=== PATIENT | male | born 1950 | race Caucasian/White ===

== ENCOUNTER 2018-10-30 10:21 | Inpatient (IN) | payer MEDICARE, BC ==
[2018-10-30] MEDS ORDERED: Ondansetron 4 MG/2 ML SDV IVPUSH ONE (11:13)
[2018-10-30] MEDS ORDERED: Dextrose 5%-Lactated Ringers 1,000 ML IV SCH (11:15)
--- NOTE | 2018-10-30 11:18 | EDM.PDOC ---
ED HPI GENERAL MEDICAL PROBLEM - General Chief Complaint: Abdominal Pain Stated Complaint: ABDOMINAL PAIN, DIAHREA X4 DAYS Time Seen by Provider: 10/30/18 11:12 Source of Information: Reports: Patient History Limitations: Reports: No Limitations - History of Present Illness INITIAL COMMENTS - FREE TEXT/NARRATIVE: 68-year-old male presents to the ED with diffuse inferior umbilical abdominal pain 4 days. Pain is strongly colicky and interfering with his sleep. Unable to eat. States he's been having small squirts of diarrhea mostly yellowish in color sometimes 10 or 12 times per day for the last 4 days. Pain waxes and wanes suggesting a very strong colicky component to the pain. He's had intermittent chills but no defined fever. He has had no previous abdominal surgery. He's had an umbilical hernia for a lengthy period of time which is never given him a problem. Over the walk-in clinic and identified to have the above history. No labs were done and he was sent to the ED for further evaluation. Onset: Sudden Onset Date: 10/27/18 (Developed periumbilical infraumbilical abdominal pain with intermittent diarrhea small quantity stools for 4 days) Duration: Day(s):, Waxing/Waning (4) Location: Reports: Abdomen (Periumbilical infraumbilical abdominal pain no with no radiation to the back) Quality: Reports: Ache, Other Severity: Moderate (Strong colicky component to the pain) Improves with: Reports: None ( 4-10 at present.) Worsens with: Reports: None Context: Denies: Activity, Exercise, Lifting, Sick Contact, Trauma, Other Associated Symptoms: Reports: Nausea/Vomiting (Occasional nausea without vomiting), Other (Small quantity frequent diarrhea stools with strong urgency component. This is caused him to have some accidents. It is yellowish in color no blood.). 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 (see below) (None.) Abdominal Pain Score (Numeric/FACES): 4 - Related Data Allergies Allergy/AdvReac Type Severity Reaction Status Date / Time No Known Allergies Allergy Verified 10/30/18 10:54 Home Meds: Home Meds Aspirin [Ecotrin EC] 10/30/18 [History] Clopidogrel [Plavix] 10/30/18 [History] Lisinopril [Prinivil] 10/30/18 [History] Rosuvastatin [Crestor] 10/30/18 [History] Ubidecarenone [Co Q-10] 10/30/18 [History] Past Medical History Cardiovascular History: Reports: High Cholesterol, Hypertension Other Neuro History: stroke 2007 Social & Family History - Tobacco Use Smoking Status *Q: Unknown Ever Smoked - Living Situation & Occupation Living situation: Reports: 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 Denies: Fever HEENT: Reports: Glasses Respiratory: Reports: No Symptoms Cardiovascular: Reports: No Symptoms Endocrine: Reports: Fatigue GI/Abdominal: Reports: Abdominal Pain (Due to lack of sleep see history of present illness), Diarrhea (Frequent small diarrhea stool losses with strong sense of urgency. Lotion color), Decreased Appetite : Reports: Other (Urine is looking darker in color.) Musculoskeletal: Reports: Joint Pain Skin: Reports: No Symptoms (Some pain in his knees and low back at times) Neurological: Reports: No Symptoms Psychiatric: Reports: No Symptoms Hematologic/Lymphatic: Reports: No Symptoms Immunologic: Reports: No Symptoms ED EXAM, GI/ABD - Physical Exam Exam: See Below Exam Limited By: No Limitations General Appearance: Alert, WD/WN, Mild Distress, Other (Very stoic fellow) Eyes: Bilateral: Normal Appearance Throat/Mouth: Normal Inspection, Other Head: Atraumatic (Tongue is dry and coated), Normocephalic Neck: Normal Inspection, Supple, Non-Tender, Full Range of Motion. No: Lymphadenopathy (L), Lymphadenopathy (R) Respiratory/Chest: No Respiratory Distress, Lungs Clear, Normal Breath Sounds, No Accessory Muscle Use. No: Wheezing Cardiovascular: Normal Peripheral Pulses, Regular Rate, Rhythm, No Edema, No Gallop, No Murmur, No Rub GI/Abdominal Exam: Soft, Guarding (Some mild guarding in the midline inferior to the umbilicus.), Tender (Tender umbilical hernia which is supraumbilical and is erythematous and moderately tender to touch.), Abnormal Bowel Sounds (Bowel sounds are decreased from the norm.). No: Rigid, Rebound (Male) Exam: Other (Umbilical hernia but no inguinal hernia.) Extremities: Normal Inspection, Normal Range of Motion, Non-Tender Neurological: Alert, Oriented, CN II-XII Intact, Normal Cognition, Normal Gait, Other Psychiatric: Normal Affect (He can stand erect), Normal Mood, Other (Appears tired) Skin Exam: Warm, Dry, Intact, Normal Color, No Rash EKG INTERPRETATION EKG Date: 10/30/18 Time: 11:38 Rhythm: NSR Rate (Beats/Min): 60 [place]: Normal P-Wave: Present QRS: Other (Decreased voltage in the limb leads. There is a Q-wave in V1 and V2. Consider old anteroseptal myocardial infarction on the patient has no history of this.) ST-T: Other (Mild T-wave flattening in aVF only.) QT: Normal EKG Interpretation Comments: Abnormal ECG Course - Vital Signs Last Recorded V/S: Last Vital Signs Temp 36.8 C 10/30/18 10:52 Pulse 80 10/30/18 10:52 Resp 16 10/30/18 10:52 BP 147/82 H 10/30/18 10:52 Pulse Ox 100 10/30/18 10:52 - Orders/Labs/Meds Orders: Active Orders 24 hr Category Date Time Status Admission Status [Patient Status] [ADT] Routine ADT 10/30/18 13:49 Ordered EKG Documentation Completion [RC] STAT Care 10/30/18 11:14 Active CULTURE STOOL + SHIGATOX [RM] Stat Lab 10/30/18 12:43 Ordered WBC, STOOL [OP] Stat Lab 10/30/18 12:43 Ordered Dextrose 5%-Lactated Ringers 1,000 ml Med 10/30/18 11:15 Active IV ASDIRECTED Levofloxacin/Dextrose 5%-Water [Levaquin in D5W 750 MG/ Med 10/30/18 13:21 Active 150 ML] 750 mg Premix Bag 1 bag IV ONETIME Sodium Chloride 0.9% [Normal Saline] 100 ml Med 10/30/18 12:00 Active IV ASDIRECTED Sodium Chloride 0.9% [Saline Flush] Med 10/30/18 11:37 Active 10 ml FLUSH ONETIME PRN Sodium Chloride 0.9% [Saline Flush] Med 10/30/18 11:58 Active 10 ml FLUSH ONETIME PRN Sodium Chloride 0.9% [Saline Flush] Med 10/30/18 11:59 Active 10 ml FLUSH ONETIME PRN metroNIDAZOLE/Normal Saline [Flagyl 500 MG in NS 100 ML Med 10/30/18 13:22 Active ] 500 mg Premix Bag 1 bag IV ONETIME Medication Orders Dextrose/Lactated Ringer's (Dextrose 5%-Lactated Ringers) 1,000 mls @ 999 mls/ hr IV ASDIRECTED [facility] Last Admin: 10/30/18 11:37 Dose: 999 mls/hr Sodium Chloride (Normal Saline) 100 mls @ 75 mls/hr IV ASDIRECTED [facility] Last Admin: 10/30/18 12:15 Dose: 75 mls/hr Levofloxacin/Dextrose 750 mg/ (Premix) 150 mls @ 100 mls/hr IV ONETIME ONE Stop: 10/30/18 14:50 Last Admin: 10/30/18 13:39 Dose: 100 mls/hr Metronidazole 500 mg/ Premix 100 mls @ 100 mls/hr IV ONETIME ONE Stop: 10/30/18 14:21 Last Admin: 10/30/18 13:39 Dose: 100 mls/hr Sodium Chloride (Saline Flush) 10 ml FLUSH ONETIME PRN PRN Reason: IV FLUSH Last Admin: 10/30/18 11:37 Dose: 10 ml Sodium Chloride (Saline Flush) 10 ml FLUSH ONETIME PRN PRN Reason: IV FLUSH Last Admin: 10/30/18 13:14 Dose: 10 ml Sodium Chloride (Saline Flush) 10 ml FLUSH ONETIME PRN PRN Reason: IV FLUSH Last Admin: 10/30/18 12:15 Dose: 10 ml Labs: Laboratory Tests 10/30/18 10/30/18 10/30/18 Range/Units 11:34 11:34 11:34 WBC 13.40 H (4.23-9.07) K/mm3 RBC 4.96 (4.63-6.08) M/mm3 Hgb 14.3 (13.7-17.5) gm/L Hct 42.4 (40.1-51.0) % MCV 85.5 (79.0-92.2) fl MCH 28.8 (25.7-32.2) pg MCHC 33.7 (32.2-35.5) g/dl RDW Std Deviation 42.6 (35.1-43.9) fL Plt Count 211 (163-337) K/mm3 MPV 10.2 (9.4-12.3) fl Neutrophils % (Manual) 86 H (40-60) % Band Neutrophils % 1 (0-10) % Lymphocytes % (Manual) 9 L (20-40) % Atypical Lymphs % 0 % Monocytes % (Manual) 3 (2-10) % Eosinophils % (Manual) 1 (0.8-7.0) % Basophils % (Manual) 0 L (0.2-1.2) Toxic Granulation 1+ slight Platelet Estimate Adequate Plt Morphology Comment Normal RBC Morph Comment Normal Sodium 139 (136-145) mEq/L Potassium 3.8 (3.5-5.1) mEq/L Chloride 104 (98-107) mEq/L Carbon Dioxide 25 (21-32) mEq/L Anion Gap 13.8 (5-15) BUN 22 H (7-18) mg/dL Creatinine 1.2 (0.7-1.3) mg/dL Est Cr Clr Drug Dosing 64.73 mL/min Estimated GFR (MDRD) 60 (>60) mL/min BUN/Creatinine Ratio 18.3 H (14-18) Glucose 101 (80-115) mg/dL Lactic Acid 0.9 (0.4-2.0) mmol/L Calcium 9.1 (8.5-10.1) mg/dL Magnesium 1.8 (1.8-2.4) mg/dl Total Bilirubin 1.0 (0.2-1.0) mg/dL AST 14 L (15-37) U/L ALT 19 (16-63) U/L Alkaline Phosphatase 76 (46-116) U/L C-Reactive Protein 17.8 H* (<1.0) mg/dL Total Protein 7.0 (6.4-8.2) g/dl Albumin 2.9 L (3.4-5.0) g/dl Globulin 4.1 gm/dL Albumin/Globulin Ratio 0.7 L (1-2) Lipase 46 L (73-393) U/L Urine Color (Yellow) Urine Appearance (Clear) Urine pH (5.0-8.0) Ur Specific [place] (1.005-1.030) Urine Protein (Negative) Urine Glucose (UA) (Negative) Urine Ketones (Negative) Urine Occult Blood (Negative) Urine Nitrite (Negative) Urine Bilirubin (Negative) Urine Urobilinogen (0.2-1.0) Ur Leukocyte Esterase (Negative) Urine RBC (0-5) /hpf Urine WBC (0-5) /hpf Ur Epithelial Cells (0-5) /hpf Urine Bacteria (FEW) /hpf Hyaline Casts (0-5) /lpf Urine Mucus (FEW) /hpf 10/30/18 Range/Units 12:51 WBC (4.23-9.07) K/mm3 RBC (4.63-6.08) M/mm3 Hgb (13.7-17.5) gm/L Hct (40.1-51.0) % MCV (79.0-92.2) fl MCH (25.7-32.2) pg MCHC (32.2-35.5) g/dl RDW Std Deviation (35.1-43.9) fL Plt Count (163-337) K/mm3 MPV (9.4-12.3) fl Neutrophils % (Manual) (40-60) % Band Neutrophils % (0-10) % Lymphocytes % (Manual) (20-40) % Atypical Lymphs % % Monocytes % (Manual) (2-10) % Eosinophils % (Manual) (0.8-7.0) % Basophils % (Manual) (0.2-1.2) Toxic Granulation Platelet Estimate Plt Morphology Comment RBC Morph Comment Sodium (136-145) mEq/L Potassium (3.5-5.1) mEq/L Chloride (98-107) mEq/L Carbon Dioxide (21-32) mEq/L Anion Gap (5-15) BUN (7-18) mg/dL Creatinine (0.7-1.3) mg/dL Est Cr Clr Drug Dosing mL/min Estimated GFR (MDRD) (>60) mL/min BUN/Creatinine Ratio (14-18) Glucose (80-115) mg/dL Lactic Acid (0.4-2.0) mmol/L Calcium (8.5-10.1) mg/dL Magnesium (1.8-2.4) mg/dl Total Bilirubin (0.2-1.0) mg/dL AST (15-37) U/L ALT (16-63) U/L Alkaline Phosphatase (46-116) U/L C-Reactive Protein (<1.0) mg/dL Total Protein (6.4-8.2) g/dl Albumin (3.4-5.0) g/dl Globulin gm/dL Albumin/Globulin Ratio (1-2) Lipase (73-393) U/L Urine Color Yellow (Yellow) Urine Appearance Clear (Clear) Urine pH 6.0 (5.0-8.0) Ur Specific [place] 1.010 (1.005-1.030) Urine Protein Negative (Negative) Urine Glucose (UA) Trace H (Negative) Urine Ketones Negative (Negative) Urine Occult Blood Negative (Negative) Urine Nitrite Negative (Negative) Urine Bilirubin Negative (Negative) Urine Urobilinogen 0.2 (0.2-1.0) Ur Leukocyte Esterase Negative (Negative) Urine RBC 0-5 (0-5) /hpf Urine WBC 0-5 (0-5) /hpf Ur Epithelial Cells 0-5 (0-5) /hpf Urine Bacteria Few (FEW) /hpf Hyaline Casts 0-5 (0-5) /lpf Urine Mucus Few (FEW) /hpf Meds: Medications Generic Name Dose Route Start Last Admin Trade Name Davq PRN Reason Stop Dose Admin Dextrose/Lactated Ringer's 1,000 mls @ 999 mls/hr 10/30/18 11:15 10/30/18 11: 37 Dextrose 5%-Lactated Ringers IV 999 mls/hr ASDIRECTED RAMONITA Administration Sodium Chloride 100 mls @ 75 mls/hr 10/30/18 12:00 10/30/18 12:15 Normal Saline IV 75 mls/hr ASDIRECTED RAMONITA Administration Levofloxacin/Dextrose 750 mg/ 150 mls @ 100 mls/hr 10/30/18 13:21 10/30/18 13 :39 Premix IV 10/30/18 14:50 100 mls/hr ONETIME ONE Administration Metronidazole 500 mg/ Premix 100 mls @ 100 mls/hr 10/30/18 13:22 10/30/18 13: 39 IV 10/30/18 14:21 100 mls/hr ONETIME ONE Administration Sodium Chloride 10 ml 10/30/18 11:37 10/30/18 11:37 Saline Flush FLUSH 10 ml ONETIME PRN Administration IV FLUSH Sodium Chloride 10 ml 10/30/18 11:58 10/30/18 13:14 Saline Flush FLUSH 10 ml ONETIME PRN Administration IV FLUSH Sodium Chloride 10 ml 10/30/18 11:59 10/30/18 12:15 Saline Flush FLUSH 10 ml ONETIME PRN Administration IV FLUSH Discontinued Medications Generic Name Dose Route Start Last Admin Trade Name Dieter PRN Reason Stop Dose Admin Iopamidol 100 ml 10/30/18 11:59 10/30/18 12:12 Isovue-370 (76%) IVPUSH 10/30/18 12:00 100 ml ONETIME ONE Administration Ondansetron HCl 4 mg 10/30/18 11:13 10/30/18 11:37 Zofran IVPUSH 10/30/18 11:14 4 mg ONETIME ONE Administration - Radiology Interpretation Free Text/Narrative:: 68-year-old male presents to the ED with a four-day history of intermittent strong colicky abdominal cramping pain mostly infraumbilical. Associated air urgency and small diarrhea yellow stools day and night for 4 days. Blood noted. Some chills but no defined fever. Pain causes nausea but has not vomited. Hasn' t been able to eat for the last day or 2. Gated and dizzy. Tongue is coated. Vital signs are otherwise normal. No previous abdominal surgery. Patient does in fact have an umbilical hernia that is firm and mildly tender to palpation it is also erythematous and is supraumbilical. He is guarding infraumbilically however with no obvious rebound tenderness. Plan IV D5 normal saline at open. He requests no analgesia at this time. We'll give Zofran 4 mg IV. He rates his pain as 4-10. CT of the abdomen will be performed with IV contrast only. Labs to include a serum lipase and lactic acid. - Re-Assessments/Exams Free Text/Narrative Re-Assessment/Exam: 10/30/18 12:43White blood cell count is mildly elevated at 13.40. 86% neutrophils 1% band cells and 9 lymphocytes. Hemoglobin is 14.3 with hematocrit of 42.4 is 211,000. Sodium 139 with a potassium of 3.8. Chloride 104 with a bicarbonate 25. Anion gap is 13.8. BUN is 22 with a creatinine of 1.2. BUN/ creatinine ratio is minimally elevated 18.3. Glucose is 101. Lactic acid is 0.9. Calcium is 9.1 and magnesium is 1.8. Liver function is normal. C-reactive protein is markedly elevated at 17.8 protein is 7.0 albumin fraction slightly low at 2.9. Lipase is normal at 46 10/30/18 12:49 CT the abdomen and pelvis has been performed with IV contrast only. Visualized portion of the lung bases appear normal. There is a small to moderate sized hiatal hernia. Liver appears to be homogeneous without any intraductal dilatation. Gallbladder contains no calcified gallstones or pericholecystic fluid. Spleen has an abnormal appearance of which I will await the radiologist's opinion. Abdominal aorta is normal without aneurysmal dilatation. There is a lot of small bowel filled with fluid. There is no air- fluid levels to suggest obstruction. There are some diverticula of the sigmoid colon with some haziness and infiltrate along the sigmoid colon due to diverticulitis. I question an early phlegmon in this area. Appendix is visualized and appears to be normal. Their is a collection of several loops of bowel in the right lower quadrant which appears to be small bowel. Adrenal glands appear to to be normal. He does have a umbilical hernia which appears to contain fatty tissue. There is surrounding fluid around this fat suggesting inflammation. Appears to have a parapelvic pelvic cyst /versus UPJ junction obstruction on the left kidney. Ureter however is normal. Similarly the right kidney and ureter appear to be normal as well. We will await the radiologist's report in this regard. 10/30/18 13:30 radiologist concurs with my findings although he did not comment on the umbilical hernia. I did speak with him and he will addend his note. Subtotally have spoken with Dr. Garrett Sharp internal corrosion specialist surgeon and he'll see the patient on the med surgery floor. The plan will be to start the patient on Levaquin 750 mg IV and Flagyl 500 g IV while in the department. Speak with Dr. Cabello with a plan to admit the patient to the hospital for IV antibiotic therapy for diverticulitis. 10/30/18 13:57 patient appraised of the findings. Advise of Dr. Sharp will be seeing him in consultation and he'll be admitted to the med surgery floor for IV antibiotic therapy for his diverticulitis. At present he states his pain is better than it has been for several hours. Has not received any analgesia. Departure - Departure Time of Disposition: 13:57 Disposition: Admitted As Inpatient 64 Condition: Fair Clinical Impression: Umbilical hernia, incarcerated Diverticulitis large intestine Qualifiers: Diverticulitis bleeding: without bleeding Diverticulitis complication: with perforation and without abscess Qualified Code(s): K57.20 - Diverticulitis of large intestine with perforation and abscess without bleeding - Discharge Information *PRESCRIPTION DRUG MONITORING PROGRAM REVIEWED*: Not Applicable *COPY OF PRESCRIPTION DRUG MONITORING REPORT IN PATIENT JONO: Not Applicable Referrals: Talib Quintero MD [Primary Care Provider] - Forms: ED Department Discharge - My Orders Last 24 Hours: My Active Orders 10/30/18 11:14 EKG Documentation Completion [RC] STAT 10/30/18 11:15 Dextrose 5%-Lactated Ringers 1,000 ml IV ASDIRECTED 10/30/18 11:37 Sodium Chloride 0.9% [Saline Flush] 10 ml FLUSH ONETIME PRN 10/30/18 11:58 Sodium Chloride 0.9% [Saline Flush] 10 ml FLUSH ONETIME PRN 10/30/18 11:59 Sodium Chloride 0.9% [Saline Flush] 10 ml FLUSH ONETIME PRN 10/30/18 12:00 Sodium Chloride 0.9% [Normal Saline] 100 ml IV ASDIRECTED 10/30/18 12:43 CULTURE STOOL + SHIGATOX [RM] Stat WBC, STOOL [OP] Stat 10/30/18 13:21 Levofloxacin/Dextrose 5%-Water [Levaquin in D5W 750 MG/150 ML] 750 mg Premix Bag 1 bag IV ONETIME 10/30/18 13:22 metroNIDAZOLE/Normal Saline [Flagyl 500 MG in NS 100 ML] 500 mg Premix Bag 1 bag IV ONETIME 10/30/18 13:49 Admission Status [Patient Status] [ADT] Routine - Assessment/Plan Last 24 Hours: My Active Orders 10/30/18 11:14 EKG Documentation Completion [RC] STAT 10/30/18 11:15 Dextrose 5%-Lactated Ringers 1,000 ml IV ASDIRECTED 10/30/18 11:37 Sodium Chloride 0.9% [Saline Flush] 10 ml FLUSH ONETIME PRN 10/30/18 11:58 Sodium Chloride 0.9% [Saline Flush] 10 ml FLUSH ONETIME PRN 10/30/18 11:59 Sodium Chloride 0.9% [Saline Flush] 10 ml FLUSH ONETIME PRN 10/30/18 12:00 Sodium Chloride 0.9% [Normal Saline] 100 ml IV ASDIRECTED 10/30/18 12:43 CULTURE STOOL + SHIGATOX [RM] Stat WBC, STOOL [OP] Stat 10/30/18 13:21 Levofloxacin/Dextrose 5%-Water [Levaquin in D5W 750 MG/150 ML] 750 mg Premix Bag 1 bag IV ONETIME 10/30/18 13:22 metroNIDAZOLE/Normal Saline [Flagyl 500 MG in NS 100 ML] 500 mg Premix Bag 1 bag IV ONETIME 10/30/18 13:49 Admission Status [Patient Status] [ADT] Routine
[2018-10-30] MEDS ORDERED: Sodium Chloride 0.9% 10 ML Syringe FLUSH PRN ×3 (11:37→11:59)
[2018-10-30] MEDS ORDERED: Iopamidol 612 MG/ML 100 ML Bottle IVPUSH ONE ×2 (11:37→11:58)
[2018-10-30] MEDS ORDERED: Iopamidol 755 Mg/ML 100 ML Bottle IVPUSH ONE (11:59)
[2018-10-30] MEDS ORDERED: Sodium Chloride 0.9% 100 ML IV SCH (12:00)
--- NOTE | 2018-10-30 12:56 | CT ---
Addendum: Not mentioned on the original report is a small fat-containing umbilical hernia which shows some increased density possibly due to small amount of incarcerated mesenteric fat. Hernia opening measures 6 mm. --- Addendum1 above dictated on [10/30/2018 13:27] by [Jesus Diaz Hilton J.] --- --- Addendum1 above signed on [10/30/2018 13:27] by [Jesus Diaz Hilton J.] --- --- Original report below dictated on [10/30/2018 12:45] by [Jesus Diaz Hilton J.] --- --- Original report below signed on [10/30/2018 12:53] by [Jesus Diaz Hilton J.] --- CT abdomen and pelvis Technique: Multiple axial sections were obtained during the arterial phase from above the dome of the diaphragm inferiorly through the pubic symphysis. Intravenous contrast was utilized. No oral contrast has been given. Delayed venous imaging then obtained from above the dome of the diaphragm inferior through the pubic symphysis. Findings: Visualized lung bases show nothing acute. Liver contains no focal parenchymal abnormality. Spleen appears within normal limits in size. Small low density finding is noted anteriorly within the spleen measuring about 3-4 mm which is felt to be incidental given its small size. Adrenal glands show no discrete nodule. Gallbladder contains no calcified gallstones. Small cyst is noted within the upper left kidney. Fluid-filled structures are seen within the left renal pelvis either due to functional UPJ obstruction or parapelvic cysts. Left ureter shows no dilatation with no abnormal calcifications being seen along the course of both ureters. Aorta shows mild atherosclerotic change. No renal artery stenosis is seen. Superior mesenteric artery and celiac axis appears patent. Inferior mesenteric artery is also patent. No retroperitoneal adenopathy is seen. Diverticuli are seen within the sigmoid colon. Inflammatory change is seen around the sigmoid colon which is felt compatible with diverticulitis. Minimal extraluminal air is seen compatible with ruptured diverticuli. Small amount of adjacent fluid is noted and difficult to exclude an early abscess. There is mild bowel wall thickening with an adjacent small bowel loop which is felt to be reactive from the diverticulitis. No additional pelvic abnormality is seen other than enlarged prostate gland. Bone window settings were reviewed which shows mild diffuse scattered endplate osteophytes. Degenerative apophyseal change is seen within the lower lumbar spine. Impression: 1. Diverticulitis as noted above. Small amount of fluid is seen adjacent to the diverticulitis and difficult to exclude an early abscess. 2. Slight bowel wall thickening within a loop of small bowel adjacent to the diverticulitis is felt to be reactive. 3. Fluid-filled structures within the left renal pelvis. Differential includes parapelvic cysts versus so-called functional UPJ obstruction. No ureteral dilatation or ureteral calcifications are seen. 4. Other findings as described above believed to be incidental. Diagnostic code #3 --- Addendum1 signed ---
[2018-10-30] MEDS ORDERED: Levofloxacin/Dextrose 5%-Water 750 MG in Premix Bag 1 BAG IV ONE (13:21)
[2018-10-30] MEDS ORDERED: metroNIDAZOLE/Normal Saline 500 MG in Premix Bag 1 BAG IV ONE (13:22)
--- NOTE | 2018-10-30 16:06 | PCM.HP.2 ---
H&P History of Present Illness - General Date of Service: 10/30/18 Admit Problem/Dx: Admission Diagnosis/Problem Admission Diagnosis/Problem Diverticulitis of colon with perforation - History of Present Illness Initial Comments - Free Text/Narative: 68-year-old male with history of CVA in 2007, hypertension, and hyperlipidemia developed pain in the lower abdomen on Tuesday at 1 PM presented to the emergency room with worsening pain. Patient states over the last 3 days he has had multiple bouts of diarrhea of up to 10-12 per day. No history of antibiotics. Last BM at 7:30 this morning. Episodes of fever and chills, last early this morning. Patient has never had a colonoscopy but has done Hemoccult cards. Pain is moderate to severe. He has not had an appetite. Pain is colicky and diffuse in the lower abdomen. He does state he has had an umbilical hernia for several years. It has not caused him problems in the past. He has no history of previous surgery. in the emergency room a CT of the abdomen was performed which showed: A fat- containing umbilical hernia which may have a small amount of incarcerated mesenteric fat. Also, diverticulitis with abscess formation in the sigmoid colon. Minimal extraluminal air is seen compatible with ruptured diverticula. Fluid-filled structures within the left renal pelvis. Differential includes peripelvic cyst versus so-called functional UPJ obstruction. No ureteral dilatation or ureteral calcifications are seen. WBC 13.4, hemoglobin 14.3, platelets 211, sodium 139, potassium 3.8, BUN 22, creatinine 1.2, C-reactive protein 17.8, normal liver function tests except albumin of 2.9. Normal UA. in the emergency room patient was started on Levaquin and metronidazole. Abdominal Pain Score (Numeric/FACES): 4 - Related Data Allergies/Adverse Reactions: Allergies Allergy/AdvReac Type Severity Reaction Status Date / Time No Known Allergies Allergy Verified 10/30/18 15:08 Home Medications: Home Meds Aspirin [Ecotrin EC] 10/30/18 [History] Clopidogrel [Plavix] 10/30/18 [History] Lisinopril [Prinivil] 10/30/18 [History] Rosuvastatin [Crestor] 10/30/18 [History] Ubidecarenone [Co Q-10] 10/30/18 [History] Past Medical History HEENT History: Reports: Cataract Cardiovascular History: Reports: Heart Murmur, High Cholesterol, Hypertension Other Cardiovascular History: prolapsed mitral valve Gastrointestinal History: Reports: Diverticulosis Other Neuro History: stroke 2007 - Infectious Disease History Infectious Disease History: Reports: [id number] Enterobacteriaceae , Shingles Social & Family History - Family History Family Medical History: Noncontributory - Tobacco Use Smoking Status *Q: Never Smoker Second Hand Smoke Exposure: No - Caffeine Use Caffeine Use: Reports: None Other Caffeine Use: no caffeine - Recreational Drug Use Recreational Drug Use: No - Living Situation & Occupation Living situation: Reports: 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 Exam - Exam Exam: See Below - Vital Signs Vital Signs: Last Vital Signs Temp 97.5 F 10/30/18 14:44 Pulse 64 10/30/18 14:44 Resp 16 10/30/18 14:44 BP 134/70 10/30/18 14:44 Pulse Ox 98 10/30/18 14:44 Weight: 193 lb 9.6 oz - Exam Quality Assessment: No: Supplemental Oxygen General: Alert, Oriented HEENT: Conjunctiva Clear, EACs Clear, EOMI, Hearing Intact, Mucosa Moist & [place] Neck: Supple, Trachea Midline Lungs: Clear to Auscultation, Normal Respiratory Effort Cardiovascular: Regular Rate, Regular Rhythm GI/Abdominal Exam: Normal Bowel Sounds, Other (left lower quadrant tenderness with mild guarding. Diffuse lower abdominal tenderness. Umbilical hernia with mild erythema.) Extremities: Normal Inspection, Normal Range of Motion, Non-Tender, No Pedal Edema, Normal Capillary Refill Neuro Extensive - Mental Status: Alert, Oriented x3 Neuro Extensive - Motor, Sensory, Reflexes: CN II-XII Intact, Normal Gait Psychiatric: Alert, Normal Affect, Normal Mood - Patient Data Lab Results Last 24 hrs: Laboratory Results - last 24 hr 10/30/18 10/30/18 10/30/18 Range/Units 11:34 11:34 11:34 WBC 13.40 H (4.23-9.07) K/mm3 RBC 4.96 (4.63-6.08) M/mm3 Hgb 14.3 (13.7-17.5) gm/L Hct 42.4 (40.1-51.0) % MCV 85.5 (79.0-92.2) fl MCH 28.8 (25.7-32.2) pg MCHC 33.7 (32.2-35.5) g/dl RDW Std Deviation 42.6 (35.1-43.9) fL Plt Count 211 (163-337) K/mm3 MPV 10.2 (9.4-12.3) fl Neutrophils % (Manual) 86 H (40-60) % Band Neutrophils % 1 (0-10) % Lymphocytes % (Manual) 9 L (20-40) % Atypical Lymphs % 0 % Monocytes % (Manual) 3 (2-10) % Eosinophils % (Manual) 1 (0.8-7.0) % Basophils % (Manual) 0 L (0.2-1.2) Toxic Granulation 1+ slight Platelet Estimate Adequate Plt Morphology Comment Normal RBC Morph Comment Normal Sodium 139 (136-145) mEq/L Potassium 3.8 (3.5-5.1) mEq/L Chloride 104 (98-107) mEq/L Carbon Dioxide 25 (21-32) mEq/L Anion Gap 13.8 (5-15) BUN 22 H (7-18) mg/dL Creatinine 1.2 (0.7-1.3) mg/dL Est Cr Clr Drug Dosing 64.73 mL/min Estimated GFR (MDRD) 60 (>60) mL/min BUN/Creatinine Ratio 18.3 H (14-18) Glucose 101 (80-115) mg/dL Lactic Acid 0.9 (0.4-2.0) mmol/L Calcium 9.1 (8.5-10.1) mg/dL Magnesium 1.8 (1.8-2.4) mg/dl Total Bilirubin 1.0 (0.2-1.0) mg/dL AST 14 L (15-37) U/L ALT 19 (16-63) U/L Alkaline Phosphatase 76 (46-116) U/L C-Reactive Protein 17.8 H* (<1.0) mg/dL Total Protein 7.0 (6.4-8.2) g/dl Albumin 2.9 L (3.4-5.0) g/dl Globulin 4.1 gm/dL Albumin/Globulin Ratio 0.7 L (1-2) Lipase 46 L (73-393) U/L Urine Color (Yellow) Urine Appearance (Clear) Urine pH (5.0-8.0) Ur Specific [place] (1.005-1.030) Urine Protein (Negative) Urine Glucose (UA) (Negative) Urine Ketones (Negative) Urine Occult Blood (Negative) Urine Nitrite (Negative) Urine Bilirubin (Negative) Urine Urobilinogen (0.2-1.0) Ur Leukocyte Esterase (Negative) Urine RBC (0-5) /hpf Urine WBC (0-5) /hpf Ur Epithelial Cells (0-5) /hpf Urine Bacteria (FEW) /hpf Hyaline Casts (0-5) /lpf Urine Mucus (FEW) /hpf 10/30/18 Range/Units 12:51 WBC (4.23-9.07) K/mm3 RBC (4.63-6.08) M/mm3 Hgb (13.7-17.5) gm/L Hct (40.1-51.0) % MCV (79.0-92.2) fl MCH (25.7-32.2) pg MCHC (32.2-35.5) g/dl RDW Std Deviation (35.1-43.9) fL Plt Count (163-337) K/mm3 MPV (9.4-12.3) fl Neutrophils % (Manual) (40-60) % Band Neutrophils % (0-10) % Lymphocytes % (Manual) (20-40) % Atypical Lymphs % % Monocytes % (Manual) (2-10) % Eosinophils % (Manual) (0.8-7.0) % Basophils % (Manual) (0.2-1.2) Toxic Granulation Platelet Estimate Plt Morphology Comment RBC Morph Comment Sodium (136-145) mEq/L Potassium (3.5-5.1) mEq/L Chloride (98-107) mEq/L Carbon Dioxide (21-32) mEq/L Anion Gap (5-15) BUN (7-18) mg/dL Creatinine (0.7-1.3) mg/dL Est Cr Clr Drug Dosing mL/min Estimated GFR (MDRD) (>60) mL/min BUN/Creatinine Ratio (14-18) Glucose (80-115) mg/dL Lactic Acid (0.4-2.0) mmol/L Calcium (8.5-10.1) mg/dL Magnesium (1.8-2.4) mg/dl Total Bilirubin (0.2-1.0) mg/dL AST (15-37) U/L ALT (16-63) U/L Alkaline Phosphatase (46-116) U/L C-Reactive Protein (<1.0) mg/dL Total Protein (6.4-8.2) g/dl Albumin (3.4-5.0) g/dl Globulin gm/dL Albumin/Globulin Ratio (1-2) Lipase (73-393) U/L Urine Color Yellow (Yellow) Urine Appearance Clear (Clear) Urine pH 6.0 (5.0-8.0) Ur Specific [place] 1.010 (1.005-1.030) Urine Protein Negative (Negative) Urine Glucose (UA) Trace H (Negative) Urine Ketones Negative (Negative) Urine Occult Blood Negative (Negative) Urine Nitrite Negative (Negative) Urine Bilirubin Negative (Negative) Urine Urobilinogen 0.2 (0.2-1.0) Ur Leukocyte Esterase Negative (Negative) Urine RBC 0-5 (0-5) /hpf Urine WBC 0-5 (0-5) /hpf Ur Epithelial Cells 0-5 (0-5) /hpf Urine Bacteria Few (FEW) /hpf Hyaline Casts 0-5 (0-5) /lpf Urine Mucus Few (FEW) /hpf Result Diagrams: 10/30/18 11:34 10/30/18 11:34 Problem List Initiated/Reviewed/Updated: Yes Orders Last 24hrs: Active Orders 24 hr Category Date Time Status Admission Status [Patient Status] [ADT] Routine ADT 10/30/18 13:49 Active CULTURE STOOL + SHIGATOX [RM] Stat Lab 10/30/18 15:50 Received WBC, STOOL [OP] Stat Lab 10/30/18 15:50 Received Dextrose 5%-Lactated Ringers 1,000 ml Med 10/30/18 11:15 Active IV ASDIRECTED Sodium Chloride 0.9% [Normal Saline] 100 ml Med 10/30/18 12:00 Active IV ASDIRECTED Sodium Chloride 0.9% [Saline Flush] Med 10/30/18 11:37 Active 10 ml FLUSH ONETIME PRN Sodium Chloride 0.9% [Saline Flush] Med 10/30/18 11:58 Active 10 ml FLUSH ONETIME PRN Sodium Chloride 0.9% [Saline Flush] Med 10/30/18 11:59 Active 10 ml FLUSH ONETIME PRN Medication Orders Dextrose/Lactated Ringer's (Dextrose 5%-Lactated Ringers) 1,000 mls @ 999 mls/ hr IV ASDIRECTED [facility] Last Admin: 10/30/18 11:37 Dose: 999 mls/hr Sodium Chloride (Normal Saline) 100 mls @ 75 mls/hr IV ASDIRECTED [facility] Last Admin: 10/30/18 12:15 Dose: 75 mls/hr Sodium Chloride (Saline Flush) 10 ml FLUSH ONETIME PRN PRN Reason: IV FLUSH Last Admin: 10/30/18 11:37 Dose: 10 ml Sodium Chloride (Saline Flush) 10 ml FLUSH ONETIME PRN PRN Reason: IV FLUSH Last Admin: 10/30/18 13:14 Dose: 10 ml Sodium Chloride (Saline Flush) 10 ml FLUSH ONETIME PRN PRN Reason: IV FLUSH Last Admin: 10/30/18 12:15 Dose: 10 ml Assessment/Plan Comment:: Assessment * Diverticulitis with abscess and free air * Fat containing partially incarcerated umbilical hernia * HTN on lisinopril * H/o CVA (on Plavix and ASA) and hyperlipidemia (Crestor) Plan * Admit to Med/surg * Consult Dr. Sharp in surgery * nothing by mouth except sips of water for medication * Levaquin 750 mg every 24 hours * Metronidazole 500 mg every 6 hours * Normal saline at 125 mL an hour * pain control * Restart lisinopril when we get dosing information * VTE prophylaxis with Lovenox 40 mg daily * CODE STATUS: Full code - Mortality Measure Prognosis:: Good
[2018-10-30] MEDS ORDERED: HYDROmorphone 0.5 MG/0.5 ML Syringe IVPUSH PRN (17:24)
[2018-10-30] MEDS: Sodium Chloride 0.9% 1,000 ML IV SCH (17:25)
[2018-10-30] MEDS ORDERED: Ketorolac 15 MG/ML SDV IVPUSH PRN (17:26)
--- NOTE | 2018-10-30 18:22 | CONS ---
CONSULTING PHYSICIAN: Garrett Sharp MD DATE OF CONSULTATION: 10/30/2018 REQUESTING PHYSICIAN: Dr. Cabello. REASON FOR CONSULTATION: Diverticulitis. 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 He said he had 12 to 13 bowel movements for the last 4 days, associated with lower abdominal discomfort. His pain is occasionally severe. It is waxing and waning in pattern, crampy in nature. He has had associated nausea without vomiting. He also reported some chills in a cyclical fashion. He said he has had not much of an appetite for the last 4 days. He has had no prior episodes. He has never been admitted or sought medical attention for abdominal pain. He reports a long history of an umbilical hernia, which has never given him a problem. He says it is now a bit sore, having sat on the toilet for multiple times in the last 4 days. He says that the umbilical hernia has changed in character. It is currently mildly erythematous. He said it is typically the color of the remainder of his skin. He denies any prior abdominal surgeries. PRIOR MEDICAL HISTORY: Cerebrovascular accident and hypertension. PRIOR SURGICAL HISTORY: Essentially none other than some broken bones and a laceration to the left hand. MEDICATIONS: At home: 1. Aspirin. 2. Clopidogrel. 3. Lisinopril. 4. Crestor. 5. CoQ10. SOCIAL HISTORY: He is . 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 He has never smoked cigarettes. Denies alcohol abuse. Denies illicit drugs. REVIEW OF SYSTEMS: He admits to some chills and decrease in his appetite, weakness, and malaise. Denies chest pain and shortness of breath. A 10-system review is otherwise negative, except for listed above. He has never had a colonoscopy, but he reports his Cologuard screening was negative. PHYSICAL EXAMINATION: GENERAL: He does not appear toxic. He is alert and oriented, in no obvious distress. VITAL SIGNS: Temperature 97.5, pulse 64, respirations 16, blood pressure 134/70, and saturating 98% on room air. HEAD AND NECK: Normocephalic and atraumatic. He is anicteric. His neck is supple. Full range of motion. LUNGS: Clear to auscultation bilaterally. HEART: Regular rate and rhythm. No clicks, murmurs, or rubs. ABDOMEN: Soft, however, he has guarding in the infraumbilical location, which is the point of his maximum tenderness. There is no Rovsing sign. He has no rebound tenderness. An umbilical hernia is present, which is non-reducible and mildly tender as well as mildly erythematous. EXTREMITIES: No clubbing, cyanosis, or edema. No calf tenderness. NEUROLOGIC: His cranial nerves are grossly intact. Strength and movement are preserved in all 4 extremities. He has no focal deficits. PSYCHIATRIC: He has appropriate affect and demeanor. LABORATORY DATA: Leukocytosis of 13,400, he has a left shift; neutrophils are 86%, lymphocytes 9%. C-reactive protein is quite high at 17.8. BUN 12. BUN and creatinine ratio of 18.3. Albumin is low at 2.9. I have looked at his CT scan. He has a small microperforation related to diverticulitis. There is fat stranding around the sigmoid colon. He has extensive diverticulosis. There appears to be a small developing abscess related to a point of air, not associated with bowel, in the region of his maximum tenderness and guarding; all consistent with a [place] I diverticulitis. ASSESSMENT: 1. Diverticulitis with no generalized peritonitis. 2. Umbilical hernia, which is incarcerated, not related to bowel. PLAN: He will be placed on antibiotics. I have recommended bowel rest for now. He can have medications with sips of water. He will need to be rehydrated as well. I will re-assess him tomorrow. My plan would be conservative management. However, if he does not respond to antibiotics, he may need sigmoid colon resection. I think this is unlikely. We will keep an eye on his clinical syndrome for worsening clinical signs. If he deteriorates, he will have to be shipped out. MMODAL /[id number]
[2018-10-30] MEDS: metroNIDAZOLE/Normal Saline 500 MG in Premix Bag 1 BAG IV SCH (19:59)
[2018-10-30] MEDS: oxyCODONE 5 MG Tab PO PRN (21:39)
[2018-10-31] MEDS: Sodium Chloride 0.9% 1,000 ML IV SCH ×3 (01:19→17:07)
[2018-10-31] MEDS: metroNIDAZOLE/Normal Saline 500 MG in Premix Bag 1 BAG IV SCH ×4 (01:20→19:53)
[2018-10-31] MEDS: oxyCODONE 5 MG Tab PO PRN ×3 (02:26→18:52)
[2018-10-31] MEDS ORDERED: Magnesium Sulfate/Water 2 GM in Premix Bag 1 BAG IV ONE (08:12)
--- NOTE | 2018-10-31 08:13 | PCM.PN ---
- General Info Date of Service: 10/31/18 Admission Dx/Problem (Free Text): Admission Diagnosis/Problem Admission Diagnosis/Problem Diverticulitis of colon with perforation Subjective Update: Follow Up Functional Status: Reports: Ambulating, Urinating. Denies: Pain Controlled, New Symptoms Pain Score: 10 - Review of Systems General: Denies: Fever, Weakness, Fatigue, Malaise, Chills HEENT: Reports: No Symptoms Pulmonary: Denies: Shortness of Breath Cardiovascular: Denies: Chest Pain, Dyspnea on Exertion, Lightheadedness Gastrointestinal: Reports: Abdominal Pain, Diarrhea, Difficulty Swallowing, Other. Denies: Nausea, Vomiting Genitourinary: Reports: No Symptoms Musculoskeletal: Reports: No Symptoms Skin: Denies: Cyanosis, Pallor, Diaphoresis, Bruising Neurological: Denies: Confusion, Numbness, Difficulty Walking, Weakness, Gait Disturbance Psychiatric: Denies: Depression, Anxiety, Agitation, Hallucinations, Suicidal Ideation - Patient Data Vitals - Most Recent: Last Vital Signs Temp 36.9 C 10/31/18 03:46 Pulse 65 10/31/18 03:46 Resp 18 10/31/18 03:46 BP 147/86 H 10/31/18 03:46 Pulse Ox 93 L 10/31/18 03:46 Weight - Most Recent: 88.541 kg I&O - Last 24 Hours: Intake & Output 10/30/18 10/31/18 10/31/18 22:59 06:59 14:59 Intake Total 250 2133 Output Total 200 Balance 250 1933 Lab Results Last 24 Hours: Laboratory Results - last 24 hr 10/30/18 10/30/18 10/30/18 Range/Units 11:34 11:34 11:34 WBC 13.40 H (4.23-9.07) K/mm3 RBC 4.96 (4.63-6.08) M/mm3 Hgb 14.3 (13.7-17.5) gm/L Hct 42.4 (40.1-51.0) % MCV 85.5 (79.0-92.2) fl MCH 28.8 (25.7-32.2) pg MCHC 33.7 (32.2-35.5) g/dl RDW Std Deviation 42.6 (35.1-43.9) fL Plt Count 211 (163-337) K/mm3 MPV 10.2 (9.4-12.3) fl Neut % (Auto) (34.0-67.9) % Lymph % (Auto) (21.8-53.1) % [place] % (Auto) (5.3-12.2) % Eos % (Auto) (0.8-7.0) Baso % (Auto) (0.1-1.2) % Neut # (Auto) (1.78-5.38) K/mm3 Lymph # (Auto) (1.32-3.57) K/mm3 [place] # (Auto) (0.30-0.82) K/mm3 Eos # (Auto) (0.04-0.54) K/mm3 Baso # (Auto) (0.01-0.08) K/mm3 Neutrophils % (Manual) 86 H (40-60) % Band Neutrophils % 1 (0-10) % Lymphocytes % (Manual) 9 L (20-40) % Atypical Lymphs % 0 % Monocytes % (Manual) 3 (2-10) % Eosinophils % (Manual) 1 (0.8-7.0) % Basophils % (Manual) 0 L (0.2-1.2) Toxic Granulation 1+ slight Platelet Estimate Adequate Plt Morphology Comment Normal RBC Morph Comment Normal Sodium 139 (136-145) mEq/L Potassium 3.8 (3.5-5.1) mEq/L Chloride 104 (98-107) mEq/L Carbon Dioxide 25 (21-32) mEq/L Anion Gap 13.8 (5-15) BUN 22 H (7-18) mg/dL Creatinine 1.2 (0.7-1.3) mg/dL Est Cr Clr Drug Dosing 64.73 mL/min Estimated GFR (MDRD) 60 (>60) mL/min BUN/Creatinine Ratio 18.3 H (14-18) Glucose 101 (80-115) mg/dL Lactic Acid 0.9 (0.4-2.0) mmol/L Calcium 9.1 (8.5-10.1) mg/dL Magnesium 1.8 (1.8-2.4) mg/dl Total Bilirubin 1.0 (0.2-1.0) mg/dL AST 14 L (15-37) U/L ALT 19 (16-63) U/L Alkaline Phosphatase 76 (46-116) U/L C-Reactive Protein 17.8 H* (<1.0) mg/dL Total Protein 7.0 (6.4-8.2) g/dl Albumin 2.9 L (3.4-5.0) g/dl Globulin 4.1 gm/dL Albumin/Globulin Ratio 0.7 L (1-2) Lipase 46 L (73-393) U/L Urine Color (Yellow) Urine Appearance (Clear) Urine pH (5.0-8.0) Ur Specific [place] (1.005-1.030) Urine Protein (Negative) Urine Glucose (UA) (Negative) Urine Ketones (Negative) Urine Occult Blood (Negative) Urine Nitrite (Negative) Urine Bilirubin (Negative) Urine Urobilinogen (0.2-1.0) Ur Leukocyte Esterase (Negative) Urine RBC (0-5) /hpf Urine WBC (0-5) /hpf Ur Epithelial Cells (0-5) /hpf Urine Bacteria (FEW) /hpf Hyaline Casts (0-5) /lpf Urine Mucus (FEW) /hpf 10/30/18 10/31/18 10/31/18 Range/Units 12:51 04:20 04:20 WBC 13.21 H (4.23-9.07) K/mm3 RBC 5.18 (4.63-6.08) M/mm3 Hgb 14.8 (13.7-17.5) gm/L Hct 44.3 (40.1-51.0) % MCV 85.5 (79.0-92.2) fl MCH 28.6 (25.7-32.2) pg MCHC 33.4 (32.2-35.5) g/dl RDW Std Deviation 43.2 (35.1-43.9) fL Plt Count 256 (163-337) K/mm3 MPV 10.7 (9.4-12.3) fl Neut % (Auto) 77.8 H (34.0-67.9) % Lymph % (Auto) 11.3 L (21.8-53.1) % [place] % (Auto) 9.6 (5.3-12.2) % Eos % (Auto) 1.0 (0.8-7.0) Baso % (Auto) 0.1 (0.1-1.2) % Neut # (Auto) 10.29 H (1.78-5.38) K/mm3 Lymph # (Auto) 1.49 (1.32-3.57) K/mm3 [place] # (Auto) 1.27 H (0.30-0.82) K/mm3 Eos # (Auto) 0.13 (0.04-0.54) K/mm3 Baso # (Auto) 0.01 (0.01-0.08) K/mm3 Neutrophils % (Manual) (40-60) % Band Neutrophils % (0-10) % Lymphocytes % (Manual) (20-40) % Atypical Lymphs % % Monocytes % (Manual) (2-10) % Eosinophils % (Manual) (0.8-7.0) % Basophils % (Manual) (0.2-1.2) Toxic Granulation Platelet Estimate Plt Morphology Comment RBC Morph Comment Sodium 138 (136-145) mEq/L Potassium 3.7 (3.5-5.1) mEq/L Chloride 105 (98-107) mEq/L Carbon Dioxide 20 L (21-32) mEq/L Anion Gap 16.7 H (5-15) BUN 19 H (7-18) mg/dL Creatinine 1.2 (0.7-1.3) mg/dL Est Cr Clr Drug Dosing 64.73 mL/min Estimated GFR (MDRD) 60 (>60) mL/min BUN/Creatinine Ratio 15.8 (14-18) Glucose 92 (80-115) mg/dL Lactic Acid (0.4-2.0) mmol/L Calcium 8.6 (8.5-10.1) mg/dL Magnesium 1.7 L (1.8-2.4) mg/dl Total Bilirubin 0.8 (0.2-1.0) mg/dL AST 14 L (15-37) U/L ALT 14 L (16-63) U/L Alkaline Phosphatase 77 (46-116) U/L C-Reactive Protein 15.1 H* (<1.0) mg/dL Total Protein 7.0 (6.4-8.2) g/dl Albumin 2.8 L (3.4-5.0) g/dl Globulin 4.2 gm/dL Albumin/Globulin Ratio 0.7 L (1-2) Lipase (73-393) U/L Urine Color Yellow (Yellow) Urine Appearance Clear (Clear) Urine pH 6.0 (5.0-8.0) Ur Specific [place] 1.010 (1.005-1.030) Urine Protein Negative (Negative) Urine Glucose (UA) Trace H (Negative) Urine Ketones Negative (Negative) Urine Occult Blood Negative (Negative) Urine Nitrite Negative (Negative) Urine Bilirubin Negative (Negative) Urine Urobilinogen 0.2 (0.2-1.0) Ur Leukocyte Esterase Negative (Negative) Urine RBC 0-5 (0-5) /hpf Urine WBC 0-5 (0-5) /hpf Ur Epithelial Cells 0-5 (0-5) /hpf Urine Bacteria Few (FEW) /hpf Hyaline Casts 0-5 (0-5) /lpf Urine Mucus Few (FEW) /hpf Mark Results Last 24 Hours: Microbiology 10/30/18 15:50 Stool for WBCs - Final Stool / Feces Med Orders - Current: Current Medications Enoxaparin Sodium (Lovenox) 40 mg SUBCUT DAILY [facility] Hydromorphone HCl (Dilaudid) 0.5 mg IVPUSH Q2H PRN PRN Reason: Pain (severe 7-10) Last Admin: 10/31/18 03:44 Dose: 0.5 mg Sodium Chloride (Normal Saline) 1,000 mls @ 125 mls/hr IV ASDIRECTED [facility] Last Admin: 10/31/18 01:19 Dose: 125 mls/hr Levofloxacin/Dextrose 750 mg/ (Premix) 150 mls @ 100 mls/hr IV Q24H [facility] Metronidazole 500 mg/ Premix 100 mls @ 100 mls/hr IV Q6H [facility] Last Admin: 10/31/18 07:27 Dose: 100 mls/hr Ketorolac Tromethamine (Toradol) 15 mg IVPUSH Q6H PRN PRN Reason: Pain (moderate 4-6) Lisinopril (Prinivil) 30 mg PO DAILY [facility] Ondansetron HCl (Zofran) 4 mg IV Q4H PRN PRN Reason: Nausea/Vomiting Oxycodone HCl (Oxycodone) 5 mg PO Q4H PRN PRN Reason: Pain (moderate 4-6) Last Admin: 10/31/18 02:26 Dose: 5 mg Rosuvastatin Calcium (Crestor) 10 mg PO DAILY [facility] Sodium Chloride (Saline Flush) 10 ml FLUSH ONETIME PRN PRN Reason: IV FLUSH Last Admin: 10/30/18 12:15 Dose: 10 ml Discontinued Medications Dextrose/Lactated Ringer's (Dextrose 5%-Lactated Ringers) 1,000 mls @ 999 mls/ hr IV ASDIRECTED [facility] Stop: 10/30/18 14:40 Last Admin: 10/30/18 11:37 Dose: 999 mls/hr Sodium Chloride (Normal Saline) 100 mls @ 75 mls/hr IV ASDIRECTED [facility] Stop: 10/30/18 14:40 Last Admin: 10/30/18 12:15 Dose: 75 mls/hr Levofloxacin/Dextrose 750 mg/ (Premix) 150 mls @ 100 mls/hr IV ONETIME ONE Stop: 10/30/18 14:50 Last Admin: 10/30/18 13:39 Dose: 100 mls/hr Metronidazole 500 mg/ Premix 100 mls @ 100 mls/hr IV ONETIME ONE Stop: 10/30/18 14:21 Last Admin: 10/30/18 13:39 Dose: 100 mls/hr Iopamidol (Isovue-370 (76%)) 100 ml IVPUSH ONETIME ONE Stop: 10/30/18 12:00 Last Admin: 10/30/18 12:12 Dose: 100 ml Ondansetron HCl (Zofran) 4 mg IVPUSH ONETIME ONE Stop: 10/30/18 11:14 Last Admin: 10/30/18 11:37 Dose: 4 mg Sodium Chloride (Saline Flush) 10 ml FLUSH ONETIME PRN PRN Reason: IV FLUSH Last Admin: 10/30/18 11:37 Dose: 10 ml Sodium Chloride (Saline Flush) 10 ml FLUSH ONETIME PRN PRN Reason: IV FLUSH Last Admin: 10/30/18 13:14 Dose: 10 ml - Exam General: Alert, Oriented, Cooperative, No Acute Distress HEENT: Pupils Equal, Pupils Reactive, EOMI, Mucous Membr. Moist/[place] Neck: Supple Lungs: Clear to Auscultation, Normal Respiratory Effort Cardiovascular: Regular Rate, Regular Rhythm GI/Abdominal Exam: Soft, Non-Tender (mid abdomen on palpation ), No Organomegaly , No Distention, No Abnormal Bruit, No Mass, Distended (mild), Tender. No: Normal Bowel Sounds (Male) Exam: Deferred Back Exam: Normal Inspection, Decreased Range of Motion Extremities: Normal Inspection, Normal Range of Motion, Non-Tender, No Pedal Edema, Normal Capillary Refill Peripheral Pulses: 2+: Dorsalis Pedis (L), Dorsalis Pedis (R) Skin: Warm, Dry, Intact Neurological: No New Focal Deficit, Normal Gait Psy/Mental Status: Alert, Normal Affect, Normal Mood - Problem List Review Problem List Initiated/Reviewed/Updated: Yes - My Orders Last 24 Hours: My Active Orders 10/31/18 08:12 Magnesium Sulfate/Water [Magnesium Sulfate in Water Premix] 2 gm Premix Bag 1 bag IV ONETIME - Plan Plan:: Assessment * Diverticulitis. Continue Conservative Management, Dr. Sharp following. He is still NPO except for ice chips, sips of water and oral medications * Fat containing partially incarcerated umbilical hernia, defer management to surgery * HTN, Improved. On lisinopril * Hypomagnesemia. Mg of 1.7. This is 2/2 to NPO status. Replete and Monitor * H/o CVA (on Plavix and ASA) and hyperlipidemia (Crestor) Plan * He is clinically stable * Dr. Sharp following * PO status to be determined by Dr. Sharp * Continue Levaquin 750 mg every 24 hours and Metronidazole 500 mg every 6 hours ; if no response in AM, will switch to PCN based antibiotic * Normal saline at 125 mL an hour * Educated patient about pain control and management * VTE prophylaxis with Lovenox 40 mg daily * Encourage to ambulate as tolerated * Additional orders as above * CODE STATUS: Full code
[2018-10-31] MEDS: Lisinopril 10 MG Tab PO SCH (08:40)
[2018-10-31] MEDS: Rosuvastatin 10 MG Tab PO SCH (08:41)
[2018-10-31] MEDS: Enoxaparin 40 MG/0.4 ML Syringe SUBCUT SCH (08:41)
--- NOTE | 2018-10-31 14:15 | PN ---
DATE OF SERVICE: 10/31/2018 SUBJECTIVE: The patient says he feels better today than yesterday. He still does not have much of an appetite. He is still passing loose bowel movement, but he says he now has control. He has had no accidents since his arrival. He says his pain has improved. OBJECTIVE: GENERAL: He appears alert, in no obvious distress. He does not appear toxic. VITAL SIGNS: Temperature 98.4, pulse 59, respirations 16, and blood pressure 125/70. HEAD AND NECK: Normocephalic and atraumatic. NECK: Supple. Full range of motion. LUNGS: Clear to auscultation bilaterally. HEART: Regular rate and rhythm. ABDOMEN: Soft. He has a palpable fullness in the mid abdomen just below the umbilicus, which is without guarding today. No rebound. The umbilicus looks less erythematous today. EXTREMITIES: No clubbing, cyanosis, or edema. LABORATORY DATA: Labs showed a marginal improvement in his leukocytosis as well as his left shift. Neutrophils are down to 77.8% from 86 yesterday. His C-reactive protein is marginally improved as well at 15, down from 17.8. Anion gap is increased, however, at 16.7 and a bicarb is worsened at 20. Creatinine is unchanged. The BUN/creatinine ratio has improved to 15.8. He is mildly hypomagnesemic at 1.7. ASSESSMENT: 1. Diverticulitis, being treated conservatively. 2. Incarcerated umbilical hernia. This does not appear to be an active clinical problem at the moment. PLAN: Continue antibiotics. I will hold off on advancing his diet until he shows some biochemical improvement as well. Perhaps by tomorrow, we can think about starting him on a clear liquid diet. MMODAL /[id number]
[2018-10-31] MEDS: Ondansetron 4 MG/2 ML SDV IV PRN (14:24)
[2018-10-31] MEDS: Levofloxacin/Dextrose 5%-Water 750 MG in Premix Bag 1 BAG IV SCH (15:31)
[2018-11-01] MEDS: Sodium Chloride 0.9% 1,000 ML IV SCH ×3 (01:38→18:15)
[2018-11-01] MEDS: metroNIDAZOLE/Normal Saline 500 MG in Premix Bag 1 BAG IV SCH ×4 (01:39→20:11)
[2018-11-01] MEDS: oxyCODONE 5 MG Tab PO PRN (04:45)
[2018-11-01] MEDS: Ondansetron 4 MG/2 ML SDV IV PRN (04:45)
--- NOTE | 2018-11-01 06:41 | PCM.PN ---
- General Info Date of Service: 11/01/18 Admission Dx/Problem (Free Text): Admission Diagnosis/Problem Admission Diagnosis/Problem Diverticulitis of colon with perforation Subjective Update: Follow Up Functional Status: Reports: Pain Controlled, Ambulating, Urinating. Denies: New Symptoms - Review of Systems General: Denies: Fever, Weakness, Fatigue, Malaise, Chills HEENT: Reports: No Symptoms Pulmonary: Denies: Shortness of Breath, Pleuritic Chest Pain, Cough, Wheezing Cardiovascular: Denies: Chest Pain, Dyspnea on Exertion, Lightheadedness Gastrointestinal: Reports: Flatus. Denies: Abdominal Pain, Diarrhea, Nausea, Vomiting Genitourinary: Reports: No Symptoms Musculoskeletal: Reports: No Symptoms Skin: Denies: Cyanosis, Pallor, Diaphoresis, Bruising Neurological: Denies: Confusion, Difficulty Walking, Weakness, Gait Disturbance Psychiatric: Denies: Depression, Anxiety, Agitation, Hallucinations Systems Review Comment:: Had an uneventful night but did not did sleep well duet o noise. Pain is controlled and no GI issues. Her WBC and CRP have improved. He remains afebrile. He has been ambulating a lot outside his room. - Patient Data Vitals - Most Recent: Last Vital Signs Temp 36.7 C 11/01/18 04:54 Pulse 65 11/01/18 04:54 Resp 14 11/01/18 04:54 BP 146/56 H 11/01/18 04:54 Pulse Ox 95 11/01/18 04:54 Weight - Most Recent: 89.947 kg I&O - Last 24 Hours: Intake & Output 10/31/18 10/31/18 11/01/18 14:59 22:59 06:59 Intake Total 2049 1768 Balance 2049 1768 Lab Results Last 24 Hours: Laboratory Results - last 24 hr 11/01/18 11/01/18 Range/Units 04:35 04:35 WBC 9.19 H (4.23-9.07) K/mm3 RBC 4.67 (4.63-6.08) M/mm3 Hgb 13.3 L D (13.7-17.5) gm/L Hct 40.2 (40.1-51.0) % MCV 86.1 (79.0-92.2) fl MCH 28.5 (25.7-32.2) pg MCHC 33.1 (32.2-35.5) g/dl RDW Std Deviation 42.6 (35.1-43.9) fL Plt Count 232 (163-337) K/mm3 MPV 9.9 (9.4-12.3) fl Neut % (Auto) 79.1 H (34.0-67.9) % Lymph % (Auto) 8.4 L (21.8-53.1) % [place] % (Auto) 8.8 (5.3-12.2) % Eos % (Auto) 3.3 (0.8-7.0) Baso % (Auto) 0.2 (0.1-1.2) % Neut # (Auto) 7.27 H (1.78-5.38) K/mm3 Lymph # (Auto) 0.77 L (1.32-3.57) K/mm3 [place] # (Auto) 0.81 (0.30-0.82) K/mm3 Eos # (Auto) 0.30 (0.04-0.54) K/mm3 Baso # (Auto) 0.02 (0.01-0.08) K/mm3 Manual Slide Review Abnormal smear Sodium 141 (136-145) mEq/L Potassium 4.2 (3.5-5.1) mEq/L Chloride 109 H (98-107) mEq/L Carbon Dioxide 21 (21-32) mEq/L Anion Gap 15.2 H (5-15) BUN 24 H (7-18) mg/dL Creatinine 1.0 (0.7-1.3) mg/dL Est Cr Clr Drug Dosing 77.68 mL/min Estimated GFR (MDRD) > 60 (>60) mL/min BUN/Creatinine Ratio 24.0 H (14-18) Glucose 88 (80-115) mg/dL Calcium 8.0 L (8.5-10.1) mg/dL Magnesium 1.8 (1.8-2.4) mg/dl Total Bilirubin 0.5 (0.2-1.0) mg/dL AST 12 L (15-37) U/L ALT 9 L (16-63) U/L Alkaline Phosphatase 58 (46-116) U/L C-Reactive Protein 10.3 H* (<1.0) mg/dL Total Protein 5.7 L (6.4-8.2) g/dl Albumin 2.3 L (3.4-5.0) g/dl Globulin 3.4 gm/dL Albumin/Globulin Ratio 0.7 L (1-2) Med Orders - Current: Current Medications Enoxaparin Sodium (Lovenox) 40 mg SUBCUT DAILY [facility] Last Admin: 10/31/18 08:41 Dose: 40 mg Hydromorphone HCl (Dilaudid) 0.5 mg IVPUSH Q2H PRN PRN Reason: Pain (severe 7-10) Last Admin: 10/31/18 03:44 Dose: 0.5 mg Sodium Chloride (Normal Saline) 1,000 mls @ 125 mls/hr IV ASDIRECTED [facility] Last Admin: 11/01/18 01:38 Dose: 125 mls/hr Levofloxacin/Dextrose 750 mg/ (Premix) 150 mls @ 100 mls/hr IV Q24H [facility] Last Admin: 10/31/18 15:31 Dose: 100 mls/hr Metronidazole 500 mg/ Premix 100 mls @ 100 mls/hr IV Q6H [facility] Last Admin: 11/01/18 01:39 Dose: 100 mls/hr Ketorolac Tromethamine (Toradol) 15 mg IVPUSH Q6H PRN PRN Reason: Pain (moderate 4-6) Lisinopril (Prinivil) 30 mg PO DAILY [facility] Last Admin: 10/31/18 08:40 Dose: 30 mg Ondansetron HCl (Zofran) 4 mg IV Q4H PRN PRN Reason: Nausea/Vomiting Last Admin: 11/01/18 04:45 Dose: 4 mg Oxycodone HCl (Oxycodone) 5 mg PO Q4H PRN PRN Reason: Pain (moderate 4-6) Last Admin: 11/01/18 04:45 Dose: 5 mg Rosuvastatin Calcium (Crestor) 10 mg PO DAILY [facility] Last Admin: 10/31/18 08:41 Dose: 10 mg Sodium Chloride (Saline Flush) 10 ml FLUSH ONETIME PRN PRN Reason: IV FLUSH Last Admin: 10/30/18 12:15 Dose: 10 ml Discontinued Medications Dextrose/Lactated Ringer's (Dextrose 5%-Lactated Ringers) 1,000 mls @ 999 mls/ hr IV ASDIRECTED [facility] Stop: 10/30/18 14:40 Last Admin: 10/30/18 11:37 Dose: 999 mls/hr Sodium Chloride (Normal Saline) 100 mls @ 75 mls/hr IV ASDIRECTED [facility] Stop: 10/30/18 14:40 Last Admin: 10/30/18 12:15 Dose: 75 mls/hr Levofloxacin/Dextrose 750 mg/ (Premix) 150 mls @ 100 mls/hr IV ONETIME ONE Stop: 10/30/18 14:50 Last Admin: 10/30/18 13:39 Dose: 100 mls/hr Metronidazole 500 mg/ Premix 100 mls @ 100 mls/hr IV ONETIME ONE Stop: 10/30/18 14:21 Last Admin: 10/30/18 13:39 Dose: 100 mls/hr Magnesium Sulfate 2 gm/ Premix 50 mls @ 25 mls/hr IV ONETIME ONE Stop: 10/31/18 10:11 Last Admin: 10/31/18 08:41 Dose: 25 mls/hr Iopamidol (Isovue-370 (76%)) 100 ml IVPUSH ONETIME ONE Stop: 10/30/18 12:00 Last Admin: 10/30/18 12:12 Dose: 100 ml Ondansetron HCl (Zofran) 4 mg IVPUSH ONETIME ONE Stop: 10/30/18 11:14 Last Admin: 10/30/18 11:37 Dose: 4 mg Sodium Chloride (Saline Flush) 10 ml FLUSH ONETIME PRN PRN Reason: IV FLUSH Last Admin: 10/30/18 11:37 Dose: 10 ml Sodium Chloride (Saline Flush) 10 ml FLUSH ONETIME PRN PRN Reason: IV FLUSH Last Admin: 10/30/18 13:14 Dose: 10 ml - Exam General: Alert, Oriented, Cooperative, No Acute Distress HEENT: Pupils Equal, Pupils Reactive, EOMI, Mucous Membr. Moist/[place] Neck: Supple Lungs: Clear to Auscultation, Normal Respiratory Effort Cardiovascular: Regular Rate, Regular Rhythm GI/Abdominal Exam: Normal Bowel Sounds, Soft, Non-Tender, No Organomegaly, No Distention, No Abnormal Bruit (Male) Exam: Deferred Back Exam: Normal Inspection, Decreased Range of Motion Extremities: Normal Inspection, Normal Range of Motion, Non-Tender, No Pedal Edema, Normal Capillary Refill Peripheral Pulses: 2+: Dorsalis Pedis (L), Dorsalis Pedis (R) Skin: Warm, Dry, Intact Wound/Incisions: Healing Well Neurological: No New Focal Deficit Psy/Mental Status: Alert, Normal Affect, Normal Mood - Problem List Review Problem List Initiated/Reviewed/Updated: Yes - My Orders Last 24 Hours: My Active Orders 10/31/18 15:35 Consult to Physician [CONS] Routine 10/31/18 19:04 Consult to Warehouse Director [CONS] Routine - Plan Plan:: Assessment * Diverticulitis. Continue Conservative Management, Dr. Sharp following. He is still NPO except for ice chips, sips of water and oral medications * Fat containing partially incarcerated umbilical hernia, defer management to surgery * HTN, Improved. On lisinopril * Hypomagnesemia, Resolved. Mg of 1.7--> 1.8. Hopefully he will start po meal today * H/o CVA (on Plavix and ASA) and hyperlipidemia (Crestor) Plan * He remains clinically stable * Dr. Sharp following * PO status to be determined by Dr. Sharp * PRN Restoril for Insomnia * Continue Levaquin 750 mg every 24 hours and Metronidazole 500 mg every 6 hours * Change Normal Saline at 15 mL an hour until done then d/c * Educated patient about pain control and management * VTE prophylaxis with Lovenox 40 mg daily * Encourage to ambulate as tolerated * Additional orders as above * CODE STATUS: Full code * Possible d/c in AM if able to tolerate regular meals
[2018-11-01] MEDS: Lisinopril 10 MG Tab PO SCH (09:09)
[2018-11-01] MEDS: Rosuvastatin 10 MG Tab PO SCH (09:09)
[2018-11-01] MEDS: Enoxaparin 40 MG/0.4 ML Syringe SUBCUT SCH (09:12)
[2018-11-01] MEDS ORDERED: Metoclopramide 10 MG/2 ML SDV IVPUSH PRN (10:15)
[2018-11-01] MEDS: Levofloxacin/Dextrose 5%-Water 750 MG in Premix Bag 1 BAG IV SCH (14:00)
--- NOTE | 2018-11-01 14:37 | PN ---
DATE OF SERVICE: 11/01/2018 SUBJECTIVE: The patient is feeling substantially better today. He says he is starting to develop an appetite. He says he would like something substantial to eat. Denies any shaking chills or fever. He is up and moving around. He is still passing flatus and loose bowel movements. OBJECTIVE: GENERAL: He is alert, oriented, in no obvious distress. VITAL SIGNS: Temperature 98.4, pulse 59, respiration 16, blood pressure 149/58. HEAD AND NECK: Normocephalic and atraumatic. LUNGS: Clear to auscultation bilaterally. HEART: Regular rate and rhythm. No clicks, murmurs, or rubs. ABDOMEN: Soft, substantially less tender than yesterday. He still has a palpable fullness, but there is no guarding. There is no rebound. No generalized tenderness is present. LABORATORY DATA: His labs showed an improvement in his leukocytosis to 9000 down from 13,000. He still has a persistent left shift. C-reactive protein has dropped substantially to 10 from 17.8 on his admission. ASSESSMENT: [place] 1 diverticulitis. PLAN: I will advance his diet to regular. As soon as he is tolerating regular food, we will switch him to a high-fiber diet. At some point, he will need a colonoscopy to confirm the diagnosis and rule out an occult malignancy. This can be done as an outpatient. RONNI /[id number]
[2018-11-01] MEDS ORDERED: metroNIDAZOLE 500 MG Tab PO ONE (19:21)
--- NOTE | 2018-11-01 19:25 | PCM.DCSUM1 ---
Discharge Summary - Hospital Course Diagnosis: Stroke: No Modified Lulu Scale: No Symptoms at All Modified Lulu Scale Score: 0 - Discharge Data Discharge Date: 11/01/18 Discharge Disposition: Home, Self-Care 01 Condition: Good - Discharge Diagnosis/Problem(s) (1) Diverticulitis large intestine SNOMED Code(s): 3965733 ICD Code: K57.32 - DVTRCLI OF LG INT W/O PERFORATION OR ABSCESS W/O BLEEDING Status: Acute Current Visit: Yes Qualifiers: Diverticulitis bleeding: without bleeding Diverticulitis complication: without perforation or abscess Qualified Code(s): K57.32 - Diverticulitis of large intestine without perforation or abscess without bleeding (2) Hypomagnesemia SNOMED Code(s): 499021557 ICD Code: E83.42 - HYPOMAGNESEMIA Status: Resolved Current Visit: Yes (3) Umbilical hernia, incarcerated SNOMED Code(s): 696484470 ICD Code: K42.0 - UMBILICAL HERNIA WITH OBSTRUCTION, WITHOUT GANGRENE Status: Chronic Current Visit: Yes - Patient Summary/Data Consults: Consultations 10/31/18 15:35 Consult to Physician [CONS] Routine 10/31/18 19:04 Consult to Transmission And Protection Engineer [CONS] Routine - Patient Instructions Diet: Usual Diet as Tolerated Diet, Other: Avoid fatty, greasy, dairy products for at least 3 days Activity: As Tolerated Driving: Do Not Drive Showering/Bathing: May Shower Notify Provider of: Fever, Increased Pain, Swelling and Redness, Nausea and/or Vomiting Other/Special Instructions: - Please take all new medications as directed. - Resume routine home medications and activity as tolerated. - Recommend endoscopy after treatment: see General Surgery or GI. - Call or follow up with your doctor for any concerns or issues after discharge. - Follow up with your doctor in 1 week. - Come back or seek immediate care should your symptoms persist or get worse - Discharge Plan *PRESCRIPTION DRUG MONITORING PROGRAM REVIEWED*: Not Applicable *COPY OF PRESCRIPTION DRUG MONITORING REPORT IN PATIENT JONO: Not Applicable Prescriptions/Med Rec: Levofloxacin [Levaquin] 750 mg PO DAILY #8 tablet metroNIDAZOLE [Flagyl] 500 mg PO Q8H #25 tab Ondansetron [Zofran ODT] 4 mg PO Q6H PRN #12 tab.dis PRN Reason: Nausea and Vomiting Saccharomyces Boulardii [Florastor] 250 mg PO BID #16 capsule Home Medications: Home Meds Aspirin [Ecotrin EC] 81 mg PO BEDTIME 10/30/18 [History] Clopidogrel [Plavix] 75 mg PO DAILY 10/30/18 [History] Lisinopril [Prinivil] 30 mg PO DAILY 10/30/18 [History] Rosuvastatin [Crestor] 10 mg PO DAILY 10/30/18 [History] Ubidecarenone [Co Q-10] 10 mg PO DAILY 10/30/18 [History] Levofloxacin [Levaquin] 750 mg PO DAILY #8 tablet 11/01/18 [Rx] Ondansetron [Zofran ODT] 4 mg PO Q6H PRN #12 tab.dis 11/01/18 [Rx] Saccharomyces Boulardii [Florastor] 250 mg PO BID #16 capsule 11/01/18 [Rx] metroNIDAZOLE [Flagyl] 500 mg PO Q8H #25 tab 11/01/18 [Rx] Oxygen Therapy Mode: Room Air Patient Handouts: Diverticulitis, [id number], Umbilical Hernia, Adult, Hypomagnesemia Referrals: Talib Quintero MD [Primary Care Provider] - - General Info Date of Service: 11/01/18 Admission Dx/Problem (Free Text: Admission Diagnosis/Problem Admission Diagnosis/Problem Diverticulitis of colon with perforation Subjective Update: Follow Up Functional Status: Reports: Pain Controlled, Tolerating Diet, Ambulating, Urinating - Patient Data Vitals - Most Recent: Last Vital Signs Temp 36.3 C 11/01/18 15:27 Pulse 62 11/01/18 15:27 Resp 16 11/01/18 15:27 BP 139/58 L 11/01/18 15:27 Pulse Ox 95 11/01/18 15:27 Weight - Most Recent: 89.947 kg I&O - Last 24 hours: Intake & Output 11/01/18 11/01/18 11/01/18 06:59 14:59 22:59 Intake Total 1769 740 Balance 1769 740 Lab Results - Last 24 hrs: Laboratory Results - last 24 hr 11/01/18 11/01/18 Range/Units 04:35 04:35 WBC 9.19 H (4.23-9.07) K/mm3 RBC 4.67 (4.63-6.08) M/mm3 Hgb 13.3 L D (13.7-17.5) gm/L Hct 40.2 (40.1-51.0) % MCV 86.1 (79.0-92.2) fl MCH 28.5 (25.7-32.2) pg MCHC 33.1 (32.2-35.5) g/dl RDW Std Deviation 42.6 (35.1-43.9) fL Plt Count 232 (163-337) K/mm3 MPV 9.9 (9.4-12.3) fl Neut % (Auto) 79.1 H (34.0-67.9) % Lymph % (Auto) 8.4 L (21.8-53.1) % [place] % (Auto) 8.8 (5.3-12.2) % Eos % (Auto) 3.3 (0.8-7.0) Baso % (Auto) 0.2 (0.1-1.2) % Neut # (Auto) 7.27 H (1.78-5.38) K/mm3 Lymph # (Auto) 0.77 L (1.32-3.57) K/mm3 [place] # (Auto) 0.81 (0.30-0.82) K/mm3 Eos # (Auto) 0.30 (0.04-0.54) K/mm3 Baso # (Auto) 0.02 (0.01-0.08) K/mm3 Manual Slide Review Abnormal smear Sodium 141 (136-145) mEq/L Potassium 4.2 (3.5-5.1) mEq/L Chloride 109 H (98-107) mEq/L Carbon Dioxide 21 (21-32) mEq/L Anion Gap 15.2 H (5-15) BUN 24 H (7-18) mg/dL Creatinine 1.0 (0.7-1.3) mg/dL Est Cr Clr Drug Dosing 77.68 mL/min Estimated GFR (MDRD) > 60 (>60) mL/min BUN/Creatinine Ratio 24.0 H (14-18) Glucose 88 (80-115) mg/dL Calcium 8.0 L (8.5-10.1) mg/dL Magnesium 1.8 (1.8-2.4) mg/dl Total Bilirubin 0.5 (0.2-1.0) mg/dL AST 12 L (15-37) U/L ALT 9 L (16-63) U/L Alkaline Phosphatase 58 (46-116) U/L C-Reactive Protein 10.3 H* (<1.0) mg/dL Total Protein 5.7 L (6.4-8.2) g/dl Albumin 2.3 L (3.4-5.0) g/dl Globulin 3.4 gm/dL Albumin/Globulin Ratio 0.7 L (1-2) GÓMEZ Results - Last 24 hrs: Microbiology 10/30/18 15:50 Stool Culture - Preliminary Stool / Feces Shiga Toxin I - Final NEGATIVE FOR SHIGA TOXIN 1 REFERENCE RANGE: NEGATIVE Shiga Toxin II - Final NEGATIVE FOR SHIGA TOXIN 2 REFERENCE RANGE: NEGATIVE Med Orders - Current: Current Medications Enoxaparin Sodium (Lovenox) 40 mg SUBCUT DAILY [facility] Last Admin: 11/01/18 09:12 Dose: 40 mg Hydromorphone HCl (Dilaudid) 0.5 mg IVPUSH Q2H PRN PRN Reason: Pain (severe 7-10) Last Admin: 10/31/18 03:44 Dose: 0.5 mg Sodium Chloride (Normal Saline) 1,000 mls @ 125 mls/hr IV ASDIRECTED [facility] Last Admin: 11/01/18 18:15 Dose: 125 mls/hr Levofloxacin/Dextrose 750 mg/ (Premix) 150 mls @ 100 mls/hr IV Q24H [facility] Last Admin: 11/01/18 14:00 Dose: 100 mls/hr Metronidazole 500 mg/ Premix 100 mls @ 100 mls/hr IV Q6H [facility] Last Admin: 11/01/18 13:49 Dose: 100 mls/hr Ketorolac Tromethamine (Toradol) 15 mg IVPUSH Q6H PRN PRN Reason: Pain (moderate 4-6) Lisinopril (Prinivil) 30 mg PO DAILY [facility] Last Admin: 11/01/18 09:09 Dose: 30 mg Metoclopramide HCl (Reglan) 10 mg IVPUSH Q6H PRN PRN Reason: Nausea/Vomiting Metronidazole (Flagyl) 500 mg PO ONETIME ONE Stop: 11/01/18 19:22 Ondansetron HCl (Zofran) 4 mg IV Q4H PRN PRN Reason: Nausea/Vomiting Last Admin: 11/01/18 04:45 Dose: 4 mg Oxycodone HCl (Oxycodone) 5 mg PO Q4H PRN PRN Reason: Pain (moderate 4-6) Last Admin: 11/01/18 04:45 Dose: 5 mg Rosuvastatin Calcium (Crestor) 10 mg PO DAILY [facility] Last Admin: 11/01/18 09:09 Dose: 10 mg Sodium Chloride (Saline Flush) 10 ml FLUSH ONETIME PRN PRN Reason: IV FLUSH Last Admin: 10/30/18 12:15 Dose: 10 ml Temazepam (Restoril) 15 mg PO BEDTIME PRN PRN Reason: Insomnia Discontinued Medications Dextrose/Lactated Ringer's (Dextrose 5%-Lactated Ringers) 1,000 mls @ 999 mls/ hr IV ASDIRECTED [facility] Stop: 10/30/18 14:40 Last Admin: 10/30/18 11:37 Dose: 999 mls/hr Sodium Chloride (Normal Saline) 100 mls @ 75 mls/hr IV ASDIRECTED [facility] Stop: 10/30/18 14:40 Last Admin: 10/30/18 12:15 Dose: 75 mls/hr Levofloxacin/Dextrose 750 mg/ (Premix) 150 mls @ 100 mls/hr IV ONETIME ONE Stop: 10/30/18 14:50 Last Admin: 10/30/18 13:39 Dose: 100 mls/hr Metronidazole 500 mg/ Premix 100 mls @ 100 mls/hr IV ONETIME ONE Stop: 10/30/18 14:21 Last Admin: 10/30/18 13:39 Dose: 100 mls/hr Magnesium Sulfate 2 gm/ Premix 50 mls @ 25 mls/hr IV ONETIME ONE Stop: 10/31/18 10:11 Last Admin: 10/31/18 08:41 Dose: 25 mls/hr Iopamidol (Isovue-370 (76%)) 100 ml IVPUSH ONETIME ONE Stop: 10/30/18 12:00 Last Admin: 10/30/18 12:12 Dose: 100 ml Ondansetron HCl (Zofran) 4 mg IVPUSH ONETIME ONE Stop: 10/30/18 11:14 Last Admin: 10/30/18 11:37 Dose: 4 mg Sodium Chloride (Saline Flush) 10 ml FLUSH ONETIME PRN PRN Reason: IV FLUSH Last Admin: 10/30/18 11:37 Dose: 10 ml Sodium Chloride (Saline Flush) 10 ml FLUSH ONETIME PRN PRN Reason: IV FLUSH Last Admin: 10/30/18 13:14 Dose: 10 ml
--- NOTE | 2018-11-01 19:46 | PCM.DCSUM1 ---
Discharge Summary - Hospital Course Brief History: 68-year-old male with history of CVA in 2007, hypertension, and hyperlipidemia developed pain in the lower abdomen on Tuesday at 1 PM presented to the emergency room with worsening pain. Patient states over the last 3 days he has had multiple bouts of diarrhea of up to 10-12 per day. No history of antibiotics. Last BM at 7:30 this morning. Episodes of fever and chills, last early this morning. Patient has never had a colonoscopy but has done Hemoccult cards. Pain is moderate to severe. He has not had an appetite. Pain is colicky and diffuse in the lower abdomen. He does state he has had an umbilical hernia for several years. It has not caused him problems in the past. He has no history of previous surgery. in the emergency room a CT of the abdomen was performed which showed: A fat-containing umbilical hernia which may have a small amount of incarcerated mesenteric fat. Also, diverticulitis with abscess formation in the sigmoid colon. Minimal extraluminal air is seen compatible with ruptured diverticula. Fluid-filled structures within the left renal pelvis. Differential includes peripelvic cyst versus so-called functional UPJ obstruction. No ureteral dilatation or ureteral calcifications are seen. WBC 13.4, hemoglobin 14.3, platelets 211, sodium 139, potassium 3.8, BUN 22, creatinine 1.2, C-reactive protein 17.8, normal liver function tests except albumin of 2.9. Normal UA. in the emergency room patient was started on Levaquin and metronidazole. Diagnosis: Stroke: No Modified Lulu Scale: No Symptoms at All Modified Lulu Scale Score: 0 - Discharge Data Discharge Date: 11/01/18 Discharge Disposition: Home, Self-Care 01 Condition: Good - Discharge Diagnosis/Problem(s) (1) Diverticulitis large intestine SNOMED Code(s): 9582717 ICD Code: K57.32 - DVTRCLI OF LG INT W/O PERFORATION OR ABSCESS W/O BLEEDING Status: Acute Qualifiers: Diverticulitis bleeding: without bleeding Diverticulitis complication: without perforation or abscess Qualified Code(s): K57.32 - Diverticulitis of large intestine without perforation or abscess without bleeding (2) Hypomagnesemia SNOMED Code(s): 546826920 ICD Code: E83.42 - HYPOMAGNESEMIA Status: Resolved (3) Umbilical hernia, incarcerated SNOMED Code(s): 575755562 ICD Code: K42.0 - UMBILICAL HERNIA WITH OBSTRUCTION, WITHOUT GANGRENE Status: Chronic - Patient Summary/Data Operative Procedure(s) Performed: None Complications: None Consults: Consultations 10/31/18 15:35 Consult to Physician [CONS] Routine 10/31/18 19:04 Consult to Reading Coach [CONS] Routine Labs Pending at D/C: None Recommended Follow-up Testing/Procedures: Endoscopy in 4-6 weeks. Patient has not had screening colonoscopy in the past. Planned Operative Procedure(s) after DC: None Hospital Course: Patient was primarily admitted for acute uncomplicated diverticulitis. He received intravenous antibiotics (Flagyl and Levaquin) and he responded well to this regimen. General surgery was consulted for further evaluation. Dr. Sharp recommended no additional treatment but continue with conservative management. His hospital course was uncomplicated and rest of his chronic medical illness remained stable during his short hospital stay. Once medically safe, he was then discharged home with additional oral antibiotics to complete a total of 10 day course treatment. He was advised to follow discharge instructions and to follow up with his family doctor in 1 week after discharge. - Patient Instructions Diet: Usual Diet as Tolerated Diet, Other: Avoid fatty, greasy, dairy products for at least 3 days Activity: As Tolerated Driving: Do Not Drive Showering/Bathing: May Shower Notify Provider of: Fever, Increased Pain, Swelling and Redness, Nausea and/or Vomiting Other/Special Instructions: - Please take all new medications as directed. - Resume routine home medications and activity as tolerated. - Recommend endoscopy after treatment: see General Surgery or GI. - Call or follow up with your doctor for any concerns or issues after discharge. - Follow up with your doctor in 1 week. - Come back or seek immediate care should your symptoms persist or get worse - Discharge Plan *PRESCRIPTION DRUG MONITORING PROGRAM REVIEWED*: Not Applicable *COPY OF PRESCRIPTION DRUG MONITORING REPORT IN PATIENT JONO: Not Applicable Prescriptions/Med Rec: Levofloxacin [Levaquin] 750 mg PO DAILY #8 tablet metroNIDAZOLE [Flagyl] 500 mg PO Q8H #25 tab Ondansetron [Zofran ODT] 4 mg PO Q6H PRN #12 tab.dis PRN Reason: Nausea and Vomiting Saccharomyces Boulardii [Florastor] 250 mg PO BID #16 capsule Home Medications: Home Meds Aspirin [Ecotrin EC] 81 mg PO BEDTIME 10/30/18 [History] Clopidogrel [Plavix] 75 mg PO DAILY 10/30/18 [History] Lisinopril [Prinivil] 30 mg PO DAILY 10/30/18 [History] Rosuvastatin [Crestor] 10 mg PO DAILY 10/30/18 [History] Ubidecarenone [Co Q-10] 10 mg PO DAILY 10/30/18 [History] Levofloxacin [Levaquin] 750 mg PO DAILY #8 tablet 11/01/18 [Rx] Ondansetron [Zofran ODT] 4 mg PO Q6H PRN #12 tab.dis 11/01/18 [Rx] Saccharomyces Boulardii [Florastor] 250 mg PO BID #16 capsule 11/01/18 [Rx] metroNIDAZOLE [Flagyl] 500 mg PO Q8H #25 tab 11/01/18 [Rx] Oxygen Therapy Mode: Room Air Patient Handouts: Umbilical Hernia, Adult, Diverticulitis, [id number], Hypomagnesemia Referrals: Talib Quintero MD [Primary Care Provider] - (Call clinic tomorrow and make an appointment to see for follow-up in 1 week.) - Discharge Summary/Plan Comment DC Time >30 min.: No Discharge Summary/Plan Comment: Discharge to Home - General Info Date of Service: 11/01/18 Admission Dx/Problem (Free Text: Admission Diagnosis/Problem Admission Diagnosis/Problem Diverticulitis of colon with perforation Subjective Update: Follow Up Functional Status: Reports: Pain Controlled, Tolerating Diet, Ambulating, Urinating - Review of Systems General: Denies: Fever, Weakness, Fatigue, Malaise, Chills HEENT: Reports: No Symptoms Pulmonary: Denies: Shortness of Breath Cardiovascular: Denies: Chest Pain, Dyspnea on Exertion, Lightheadedness Gastrointestinal: Reports: Flatus. Denies: Abdominal Pain, Decreased Appetite, Diarrhea, Hematochezia, Melena, Nausea, Vomiting Genitourinary: Reports: No Symptoms Musculoskeletal: Reports: No Symptoms Skin: Reports: No Symptoms Neurological: Denies: Confusion, Difficulty Walking, Weakness, Gait Disturbance Psychiatric: Denies: Depression, Anxiety, Agitation, Hallucinations Systems Review Comment: No acute issues or complaints. - Patient Data Vitals - Most Recent: Last Vital Signs Temp 36.3 C 11/01/18 15:27 Pulse 62 11/01/18 15:27 Resp 16 11/01/18 15:27 BP 139/58 L 11/01/18 15:27 Pulse Ox 95 11/01/18 15:27 Weight - Most Recent: 89.947 kg I&O - Last 24 hours: Intake & Output 11/01/18 11/01/18 11/01/18 06:59 14:59 22:59 Intake Total 1769 740 Balance 1769 740 Lab Results - Last 24 hrs: Laboratory Results - last 24 hr 11/01/18 11/01/18 Range/Units 04:35 04:35 WBC 9.19 H (4.23-9.07) K/mm3 RBC 4.67 (4.63-6.08) M/mm3 Hgb 13.3 L D (13.7-17.5) gm/L Hct 40.2 (40.1-51.0) % MCV 86.1 (79.0-92.2) fl MCH 28.5 (25.7-32.2) pg MCHC 33.1 (32.2-35.5) g/dl RDW Std Deviation 42.6 (35.1-43.9) fL Plt Count 232 (163-337) K/mm3 MPV 9.9 (9.4-12.3) fl Neut % (Auto) 79.1 H (34.0-67.9) % Lymph % (Auto) 8.4 L (21.8-53.1) % Swain % (Auto) 8.8 (5.3-12.2) % Eos % (Auto) 3.3 (0.8-7.0) Baso % (Auto) 0.2 (0.1-1.2) % Neut # (Auto) 7.27 H (1.78-5.38) K/mm3 Lymph # (Auto) 0.77 L (1.32-3.57) K/mm3 Swain # (Auto) 0.81 (0.30-0.82) K/mm3 Eos # (Auto) 0.30 (0.04-0.54) K/mm3 Baso # (Auto) 0.02 (0.01-0.08) K/mm3 Manual Slide Review Abnormal smear Sodium 141 (136-145) mEq/L Potassium 4.2 (3.5-5.1) mEq/L Chloride 109 H (98-107) mEq/L Carbon Dioxide 21 (21-32) mEq/L Anion Gap 15.2 H (5-15) BUN 24 H (7-18) mg/dL Creatinine 1.0 (0.7-1.3) mg/dL Est Cr Clr Drug Dosing 77.68 mL/min Estimated GFR (MDRD) > 60 (>60) mL/min BUN/Creatinine Ratio 24.0 H (14-18) Glucose 88 (80-115) mg/dL Calcium 8.0 L (8.5-10.1) mg/dL Magnesium 1.8 (1.8-2.4) mg/dl Total Bilirubin 0.5 (0.2-1.0) mg/dL AST 12 L (15-37) U/L ALT 9 L (16-63) U/L Alkaline Phosphatase 58 (46-116) U/L C-Reactive Protein 10.3 H* (<1.0) mg/dL Total Protein 5.7 L (6.4-8.2) g/dl Albumin 2.3 L (3.4-5.0) g/dl Globulin 3.4 gm/dL Albumin/Globulin Ratio 0.7 L (1-2) GÓMEZ Results - Last 24 hrs: Microbiology 10/30/18 15:50 Stool Culture - Preliminary Stool / Feces Shiga Toxin I - Final NEGATIVE FOR SHIGA TOXIN 1 REFERENCE RANGE: NEGATIVE Shiga Toxin II - Final NEGATIVE FOR SHIGA TOXIN 2 REFERENCE RANGE: NEGATIVE Med Orders - Current: Current Medications Enoxaparin Sodium (Lovenox) 40 mg SUBCUT DAILY [facility] Last Admin: 11/01/18 09:12 Dose: 40 mg Hydromorphone HCl (Dilaudid) 0.5 mg IVPUSH Q2H PRN PRN Reason: Pain (severe 7-10) Last Admin: 10/31/18 03:44 Dose: 0.5 mg Sodium Chloride (Normal Saline) 1,000 mls @ 125 mls/hr IV ASDIRECTED [facility] Last Admin: 11/01/18 18:15 Dose: 125 mls/hr Levofloxacin/Dextrose 750 mg/ (Premix) 150 mls @ 100 mls/hr IV Q24H [facility] Last Admin: 11/01/18 14:00 Dose: 100 mls/hr Metronidazole 500 mg/ Premix 100 mls @ 100 mls/hr IV Q6H [facility] Last Admin: 11/01/18 13:49 Dose: 100 mls/hr Ketorolac Tromethamine (Toradol) 15 mg IVPUSH Q6H PRN PRN Reason: Pain (moderate 4-6) Lisinopril (Prinivil) 30 mg PO DAILY [facility] Last Admin: 11/01/18 09:09 Dose: 30 mg Metoclopramide HCl (Reglan) 10 mg IVPUSH Q6H PRN PRN Reason: Nausea/Vomiting Ondansetron HCl (Zofran) 4 mg IV Q4H PRN PRN Reason: Nausea/Vomiting Last Admin: 11/01/18 04:45 Dose: 4 mg Oxycodone HCl (Oxycodone) 5 mg PO Q4H PRN PRN Reason: Pain (moderate 4-6) Last Admin: 11/01/18 04:45 Dose: 5 mg Rosuvastatin Calcium (Crestor) 10 mg PO DAILY [facility] Last Admin: 11/01/18 09:09 Dose: 10 mg Sodium Chloride (Saline Flush) 10 ml FLUSH ONETIME PRN PRN Reason: IV FLUSH Last Admin: 10/30/18 12:15 Dose: 10 ml Temazepam (Restoril) 15 mg PO BEDTIME PRN PRN Reason: Insomnia Discontinued Medications Dextrose/Lactated Ringer's (Dextrose 5%-Lactated Ringers) 1,000 mls @ 999 mls/ hr IV ASDIRECTED [facility] Stop: 10/30/18 14:40 Last Admin: 10/30/18 11:37 Dose: 999 mls/hr Sodium Chloride (Normal Saline) 100 mls @ 75 mls/hr IV ASDIRECTED [facility] Stop: 10/30/18 14:40 Last Admin: 10/30/18 12:15 Dose: 75 mls/hr Levofloxacin/Dextrose 750 mg/ (Premix) 150 mls @ 100 mls/hr IV ONETIME ONE Stop: 10/30/18 14:50 Last Admin: 10/30/18 13:39 Dose: 100 mls/hr Metronidazole 500 mg/ Premix 100 mls @ 100 mls/hr IV ONETIME ONE Stop: 10/30/18 14:21 Last Admin: 10/30/18 13:39 Dose: 100 mls/hr Magnesium Sulfate 2 gm/ Premix 50 mls @ 25 mls/hr IV ONETIME ONE Stop: 10/31/18 10:11 Last Admin: 10/31/18 08:41 Dose: 25 mls/hr Iopamidol (Isovue-370 (76%)) 100 ml IVPUSH ONETIME ONE Stop: 10/30/18 12:00 Last Admin: 10/30/18 12:12 Dose: 100 ml Metronidazole (Flagyl) 500 mg PO ONETIME ONE Stop: 11/01/18 19:22 Ondansetron HCl (Zofran) 4 mg IVPUSH ONETIME ONE Stop: 10/30/18 11:14 Last Admin: 10/30/18 11:37 Dose: 4 mg Sodium Chloride (Saline Flush) 10 ml FLUSH ONETIME PRN PRN Reason: IV FLUSH Last Admin: 10/30/18 11:37 Dose: 10 ml Sodium Chloride (Saline Flush) 10 ml FLUSH ONETIME PRN PRN Reason: IV FLUSH Last Admin: 10/30/18 13:14 Dose: 10 ml - Exam General: Reports: Alert, Oriented, Cooperative, No Acute Distress HEENT: Reports: Pupils Equal, Pupils Reactive, EOMI, Mucous Membr. Moist/[place]: Reports: Supple Lungs: Reports: Clear to Auscultation, Normal Respiratory Effort Cardiovascular: Reports: Regular Rate, Regular Rhythm GI/Abdominal Exam: Normal Bowel Sounds, Soft, Non-Tender, No Organomegaly, No Distention, No Abnormal Bruit (Male) Exam: Deferred Rectal (Males) Exam: Deferred Back Exam: Reports: Normal Inspection, Decreased Range of Motion Extremities: Normal Inspection, Normal Range of Motion, Non-Tender, No Pedal Edema, Normal Capillary Refill Skin: Reports: Warm, Dry, Intact Neurological: Reports: No New Focal Deficit, Normal Gait Psy/Mental Status: Reports: Alert, Normal Affect, Normal Mood Physical Findings Comments:: Tolerated his regular diet x 2 w/o any issues.
[2018-11-01] MEDS ORDERED: Temazepam 15 MG Cap PO PRN (21:00)
== END 2018-11-01 20:20 | disposition home or self-care (01) | DRG 392 ==
LOC: JD.ED 10:21 → JD.MS 14:19
PROVIDERS: ADMIT Family Medicine; ATTEND Family Medicine
DX: K57.20 Diverticulitis of large intestine with perforation and abscess without bleeding (principal); K42.0 Umbilical hernia with obstruction, without gangrene; E83.42 Hypomagnesemia; E78.5 Hyperlipidemia, unspecified; K44.9 Diaphragmatic hernia without obstruction or gangrene; E78.00 Pure hypercholesterolemia, unspecified; Z79.02 Long term (current) use of antithrombotics/antiplatelets; I10 Essential (primary) hypertension; Z79.82 Long term (current) use of aspirin; Z79.899 Other long term (current) drug therapy; Z86.73 Personal history of transient ischemic attack (TIA), and cerebral infarction without residual deficits
CPT/HCPCS: 36415; 74177; 80053; 81001; 83605; 83690; 83735; 85007; 85027; 86140; 93005; 96361; 96365; 96368; 96375; 99285; J1956; J2405; J3490; J7030; J7042; Q9967; 85025; 87046; 87427; 89055; 93010; A9270-GY; J1170; J1650; J3475; J7040

== ENCOUNTER 2025-02-06 13:56 | Emergency (ER) | payer MEDICARE, BC ==
[2025-02-06] MEDS ORDERED: Sodium Chloride 0.9% 10 ML Syringe FLUSH PRN (14:17)
[2025-02-06 14:30] LABS: BASOPHILS ABSOLUTE AUTO 0.0 K/mm3 (0.0-0.2); BASOPHILS PERCENT AUTO 0.3 % (0.0-1.0); EOSINOPHILS ABSOLUTE AUTO 0.1 K/mm3 (0.0-0.4); EOSINOPHILS PERCENT AUTO 0.6 % (0.0-6.0); IMMATURE GRAN ABSOLUTE AUTO 0.05 K/mm3 (0.00-0.05); IMMATURE GRAN PERCENT AUTO 0.4 % (0.0-0.4); LYMPHOCYTES ABSOLUTE AUTO 1.3 K/mm3 (1.0-4.8); LYMPHOCYTES PERCENT AUTO 10.6 % (24.0-44.0); MEAN PLATELET VOLUME 10.9 fl (9.4-12.4); MONOCYTES ABSOLUTE AUTO 1.3 K/mm3 (0.0-0.8); MONOCYTES PERCENT AUTO 10.5 % (0.0-8.0); NEUTROPHILS ABSOLUTE AUTO 9.8 K/mm3 (1.8-7.7); NEUTROPHILS PERCENT AUTO 77.6 % (41.0-71.0); NRBC ABSOLUTE 0.00 (0.00-0.02); NRBC PERCENT 0.0 % (0.0-0.2); PLATELET COUNT,PLT 194 K/mm3 (150-400); RED BLOOD CELL COUNT 4.90 M/mm3 (4.52-5.90); WHITE BLOOD CELL COUNT,WBC 12.61 K/mm3 (3.9-11.3)
[2025-02-06 15:04] LABS: A/G RATIO 0.9 (1-2); ALANINE AMINOTRANSFERASE,ALT 39 U/L (16-63); ASPARTATE AMNIOTRANSFERASE,AST 16 U/L (15-37); BILIRUBIN TOTAL 1.4 mg/dL (0.2-1.0); BLOOD UREA NITROGEN,BUN 25 mg/dL (7-18); CARBON DIOXIDE,CO2 25 mEq/L (21-32); CHLORIDE,CL 107 mEq/L (98-107); CREATININE 1.5 mg/dL (0.7-1.3); ESTIMATED GFR 48 mL/min (>60); GLUCOSE RANDOM 108 mg/dL (70-99); POTASSIUM,K 4.2 mEq/L (3.5-5.1); PROTEIN TOTAL,TP 7.0 g/dl (6.4-8.2); SODIUM,NA 141 mEq/L (136-145); TROPONIN I HIGH SENSITIVITY 16 pg/mL (<=76)
== END 2025-02-06 17:30 | disposition home or self-care (01) ==
LOC: JD.ED 13:56
DX: R00.2 Palpitations (principal); I10 Essential (primary) hypertension; E78.00 Pure hypercholesterolemia, unspecified; Z79.82 Long term (current) use of aspirin; Z79.899 Other long term (current) drug therapy
CPT/HCPCS: 36415; 71045; 71045-26; 80053; 83735; 83880; 84484; 85025; 93005; 93010; 99283; 99285